=== PATIENT | male | born 1975 | race Caucasian/White ===

== ENCOUNTER → 2017-03-18 | Outpatient (CLI) | payer BC ==
[~2017-03-18] MED LIST: CEPH500C2 PO; ENOX40IN SQ; OXYC-57 PO; PHEN-939 PO; TAMS0.4C38 PO
--- NOTE | 2017-03-18 11:39 | DIAGNOSTIC IMAGING REPORT ---
LEFT ANKLE MIN 3 VIEWS CLINICAL HISTORY: LEFT ANKLE PAIN pain COMPARISON: None DISCUSSION: 2 avulsions from the tip of the distal medial malleolus. This is well-corticated is considered old. A component is aligned anatomically. Very small heel spur. There is no evidence for soft tissue swelling. IMPRESSION: 1. Small heel spur. 2. 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 3. No acute process. Electronically signed by: Boris Awan M.D. 03/18/2017 11:37 AM Dictated Date/Time: 03/18/2017 11:36 AM
== END | disposition home or self-care (01) ==
LOC: C.RDSM 14:55
PROVIDERS: ATTEND Physician Assistant
DX: M25.572 Pain in left ankle and joints of left foot (principal); M77.32 Calcaneal spur, left foot

== ENCOUNTER → 2017-03-26 | Day surgery (SDC) | payer BC ==
[2017-03-22 10:59] VITALS: Ht 188 cm; Wt 118.2 kg
[~2017-03-26] VITALS: Ht 188 cm; Wt 118.2 kg
[~2017-03-26] MED LIST changes: +ATROPINE SULFATE 0.1 MG/ML 5ML SYR IV PRN; +CEFAZOLIN 2000 MG/60 ML D5W IV SCH; +DEXAMETHASONE SOD INJ 4 MG/ML VIAL ONE; +EpHEDrine SULFATE 50MG/5ML SYR ONE; +EpHEDrine SULFATE INJ 50 MG/ML AMP IV PRN; +FENTANYL CITRATE INJ 50 MCG/1 ML 2 ML VIAL IV PRN; +FENTANYL CITRATE INJ 50 MCG/1 ML 2 ML VIAL ONE; +GLYCOPYRROLATE INJ 0.2 MG/ML VIAL ONE; +LACTATED RINGER'S 1000ML 1,000 ML IV SCH; +LIDOCAINE HCL 2% 2 ML VIAL (20MG/ML) ONE; +MIDAZOLAM HCL 1 MG/ML 2ML VIAL ONE; +NEOSTIGMINE METHYLSULFATE 5 MG/5 ML SYR ONE; +ONDANSETRON INJ 2 MG/ML 2 ML VIAL IV PRN; +ONDANSETRON INJ 2 MG/ML 2 ML VIAL ONE; +OXYCODONE/ACETAMINOPHEN 5-325 TAB PO PRN; +PHENYLEPHRINE 100MCG/ML 5ML SYR ONE; +PROPOFOL IV EMULSION 10 MG/ML 20 ML VIAL IV ONE; +ROCURONIUM BROMIDE 10 MG/ML 5 ML VIAL ONE; +ROPIVACAINE 0.5% 5 MG/ML 30 ML VIAL ONE; +SODIUM CHLORIDE 0.9% 1000ML 1,000 ML IV SCH
--- NOTE | 2017-03-26 06:50 | History & Physical Bridge Note ---
H&P Re-Evaluation Bridge Note: I have examined the patient, reviewed the History & Physical and in the interval since the performance of the History & Physical I have noted the following changes of clinical significance: consent verified risks and benefits discussed preop... No changes noted
--- NOTE | 2017-03-26 06:53 | Discharge Instructions ---
Discharge Instructions Date of Service Mar 26, 2017. Visit Reason for Visit: Left Achilles Tendon Rupture Discharge Discharge Diagnosis / Problem: same Discharge Goals Goal(s): Decrease discomfort, Improve function Medications Stopped Medications Name(s): not applicable Restart Stopped Medication(s): use scripts as directed Activity Recommendations Activity Limitations: as noted below Lifting Limitations: until after follow-up appointment Exercise/Sports Limitations: until after follow-up appointment May Resume Sexual Activity: when tolerated Shower/Bathe: keep incision dry Driving or Machine Use: Weightbearing Status: Left non-weightbearing Anesthesia . Post Anesthesia Instructions: If you have had General Anesthesia or IV Sedation: * Do not drive today. * Resume driving when surgeon permits. * Do not make important decisions or sign legal documents today. * Call surgeon for: 1. Temperature elevations greater than 101 degrees F. 2. Uncontrollable pain. 3. Excessive bleeding. 4. Persistent nausea and vomiting. 5. Medication intolerance (nausea, vomiting or rash). * For nausea and vomiting use only clear liquids such as: tea, soda, bouillon until nausea subsides, then gradually increase diet as tolerated. * If you have any concerns or questions, call your surgeon's office. If physician is unavailable and it is an emergency, call 911 or go to the nearest emergency room. . Instructions / Follow-Up Instructions / Follow-Up DIET: * Resume previous diet. MEDICATIONS: * Please take your prescriptions as instructed at your pre-op appointment and/ or see medication discharge instructions listed above. * If concerns develop, call your physician's office at . SPECIAL CARE INSTRUCTIONS: * Ice/Elevate as instructed. * Keep dressing clean, dry, intact. * Your surgical extremity may be discolored due to prepping agents used on the skin. A bluish-green tint is a normal variant and should not cause alarm. Call your doctor at [phone] if: * Temperature above 101 degrees * Pain not relieved by pain medicine ordered * There is increased drainage or redness from any incision * You have any unanswered questions, problems or concerns. FOLLOW UP VISIT: * If not already scheduled, please call the office at to schedule a follow-up appointment. Diet Recommendations Recommended Home Diet: resume previous diet Procedures Procedures Performed: primary repair Pending Studies Studies pending at discharge: no Medical Emergencies . Who to Call and When: Medical Emergencies: If at any time you feel your situation is an emergency, please call 911 immediately. . Non-Emergent Contact Non-Emergency issues call your: Specialist Call Non-Emergent contact if: temperature is above 101.5 . . "Provider Documentation" section prepared by Wai Enriquez. .
--- NOTE | 2017-03-26 08:06 | [facility] Post Operative Brief Note ---
Immediate Operative Summary Operative Date Mar 26, 2017. Pre-Operative Diagnosis Left Achilles Tendon Rupture Post-Operative Diagnosis Same Procedure(s) Performed Left Achilles Tendon Open Primary Repair Surgeon Dr Enriquez Supervisor [employer] Surgeon(s) Shira Brown PA-C Estimated Blood Loss Trace Findings complete tear 3cm proximal to insertion Fluids (cc crystalloids) 700cc Specimens None Drains none Anesthesia block/general Complication(s) None Disposition Recovery Room / PACU
--- NOTE | 2017-03-26 08:08 | [facility] Operative Report ---
Operative Report Operative Date Mar 26, 2017. Pre-Operative Diagnosis Left Achilles Tendon Rupture Post-Operative Diagnosis Same Procedure(s) Performed Left Achilles Tendon Open Primary Repair Surgeon Dr Enriquez Sql Ssrs Ssis Developer Surgeon(s) Shira Brown PA-C Estimated Blood Loss Trace Findings complete tear 3 cm proximal to insertion Fluids (cc crystalloids) 700cc Specimens None Drains none Anesthesia popliteal block/general Complication(s) None Disposition Recovery Room / PACU Implants none Indications athletic with complete tear Description of Procedure primary repair with incision medially based. several baseball 0 vicryl sutures plantaris augmentation. 1 ethibond final cross stitch I attest to the content of the Intraoperative Record and any orders documented therein. Any exceptions are noted below.
--- NOTE | 2017-03-26 08:52 | Anesthesia Progress Nt - [facility] ---
Anesthesia Post Op Note Date & Time Mar 26, 2017 at 08:52 Vital Signs Pain Intensity: 0 Vital Signs Past 12 Hours Date Time Temp Pulse Resp B/P (MAP) Pulse Ox O2 Delivery O2 Flow Rate FiO2 03/26/17 08:41 145/81 03/26/17 08:38 53 12 100 03/26/17 08:38 53 12 03/26/17 08:36 143/80 03/26/17 08:33 54 12 03/26/17 08:33 52 12 100 03/26/17 08:32 53 12 100 03/26/17 08:32 53 12 03/26/17 08:31 142/81 03/26/17 08:27 59 13 99 03/26/17 08:27 59 13 03/26/17 08:26 53 12 03/26/17 08:26 53 12 144/87 100 03/26/17 08:21 61 11 03/26/17 08:21 61 11 151/90 99 03/26/17 08:16 60 16 147/86 100 03/26/17 08:16 59 16 03/26/17 08:13 162/98 03/26/17 08:12 36.2 71 16 162/98 98 Mask 6 03/26/17 07:05 0 03/26/17 07:00 0 03/26/17 06:59 14 03/26/17 06:56 117/88 03/26/17 06:54 70 03/26/17 06:54 70 15 99 03/26/17 06:53 163/97 03/26/17 06:49 71 0 97 03/26/17 06:49 70 03/26/17 06:26 36.5 69 16 153/84 (107) 96 Room Air Notes Mental Status: alert / awake / arousable, participated in evaluation Pt Amnestic to Procedure: Yes Nausea / Vomiting: adequately controlled Pain: adequately controlled Airway Patency, RR, SpO2: stable & adequate BP & HR: stable & adequate Hydration State: stable & adequate Anesthetic Complications: no major complications apparent
[2017-03-26 09:30] VITALS: TEMP 36.3
[2017-03-26 10:18] VITALS: BP 156/90; PULSE 73; O2SAT 96
--- NOTE | 2017-03-26 10:39 | [facility] Operative Report ---
Operative Report Operative Date Mar 26, 2017. Pre-Operative Diagnosis Left Achilles Tendon Rupture Post-Operative Diagnosis Left ankle Same Procedure(s) Performed Left Achilles Tendon Open Primary Repair Surgeon Dr Enriquez Dairy Cattle Farmer Surgeon(s) Shira Brown PA-C Estimated Blood Loss Trace Findings Ruptured achilles tendon Fluids (cc crystalloids) 700cc Specimens None Complication(s) None Disposition Recovery Room / PACU Indications This 41-year-old white male ruptured his Achilles tendon while playing soccer. He was evaluated in the office. Patient elected to proceed with surgical intervention after being educated about potential risks and outcomes. Description of Procedure Patient was taken to the operating room where he was given general anesthetic. He was prepped and draped in usual sterile fashion. Please see Dr. Enriquez's operative report for specifics of the procedure. I was present for the entire case from initial patient positioning through final wound closure. Assistance was provided in tissue traction, hemostasis, and final wound closure. Patient was taken to the recovery room in satisfactory condition. I attest to the content of the Intraoperative Record and any orders documented therein. Any exceptions are noted below.
--- NOTE | 2017-04-06 17:01 | [facility] Operative Report ---
Operative Report Date of Service Apr 06, 2017. Operative Report Preoperative diagnosis: Left Achilles tendon rupture Postoperative diagnosis: Same Surgeon: Zoe Assistants: Tara Beckman Operation: Left Achilles tendon open primary repair Perioperative situation: Medically cleared male ruptured his Achilles tendon playing soccer at this point in time options were discussed with him concerning casting/splinting/primary repair. He wished to proceed with surgical treatment. Consent obtained appropriately and risks discussed with him in detail. Procedure: After the patient appropriate notified site verified consent verified antibiotics confirmed as being given the left lower extremity was prepped and draped in usual routine fashion with the patient prone position. A posterior medial incision was made. Full-thickness flaps raised. The peritenon open. The tendon rupture was identified and debrided. Several 0 Vicryl sutures were then placed in both ends in a baseball stitch fashion and then the tendon repair to itself. His created a good end and repair. The plantaris was then dissected proximally and released and then woven through the area and then repaired on itself ;this augmented the repair with good biological tissue.The wound was irrigated peritenon was enclosed with 2-0 Vicryl. Subcutaneous days later with same and the skin with interrupted mattress 3-0 nylon sutures. The wound was then dressed with Xeroform well- padded and then a anterior dorsal splint placed made out of three-inch fiberglass. This was secured with Braden bandage and Coban. Esmarch loss was trace crystalloid per anesthesia was about 700 cc. Operative findings was a complete Achilles tendon rupture approximately 3 cm proximal to its insertion. Dictated but not read. I attest to the content of the Intraoperative Record and any orders documented therein. Any exceptions are noted below.
== END | disposition home or self-care (01) ==
LOC: X.SURG 06:17
PROVIDERS: ATTEND Physical Medicine & Rehabilitation Sports Medicine
DX: S86.012A Strain of left Achilles tendon, initial encounter (principal); X58.XXXA Exposure to other specified factors, initial encounter; Y93.66 Activity, soccer; Z82.49 Family history of ischemic heart disease and other diseases of the circulatory system; Z83.3 Family history of diabetes mellitus

== ENCOUNTER 2017-03-30 08:43 | Inpatient (IN) | payer BC ==
[~2017-03-30] VITALS: Ht 188 cm; Wt 116.3 kg
[2017-03-30] MEDS ORDERED: SODIUM CHLORIDE 0.9% 1000ML 1,000 ML IV STA (09:09)
[2017-03-30] MEDS ORDERED: ONDANSETRON INJ 2 MG/ML 2 ML VIAL IV STA (09:09)
[2017-03-30] MEDS ORDERED: HYDROmorphone INJ 1 MG/ML SYR IV STA (09:09)
[2017-03-30] MEDS ORDERED: ENOX40IN SQ (09:16)
[2017-03-30] MEDS ORDERED: CEPH500C2 PO (09:16)
[2017-03-30] MEDS ORDERED: OXYC-57 PO (09:16)
--- NOTE | 2017-03-30 09:20 | EMERGENCY ROOM VISIT NOTE ---
History First contact with patient: 09:02 Chief Complaint: ABDOMINAL PAIN Stated Complaint: STRONG PAIN IN THE BELLY Nursing Triage Summary: pt reports pain in RUQ starting at 0630 this morning with nausea , reports surg on ruptured achilles on Fri splint in place on LLE History of Present Illness The patient is a 41 year old male who presents to the Emergency Room with complaints of right flank pain. The patient states that the pain started suddenly at 6:30 this morning. He states the pain is rated 10/10 and is associated with nausea. The patient states that he had Achilles tendon surgery 4 days ago. He denies any pain in his chest or trouble breathing. He denies any vomiting. He denies diarrhea but states he has moved his bowel today. He denies any low back pain, numbness, tingling, weakness in the extremities. Review of Systems A 10 system review of systems was completed with positives and pertinent negatives listed in the HPI. Past Medical/Surgical History Medical Problems: (1) Renal and ureteric calculus (2) Rupture Achilles tendon Social History Smoking Status: Never Smoker Housing Status: lives with family Current/Historical Medications Scheduled Cephalexin Monohydrate (Keflex), 500 MG PO TID Enoxaparin (Lovenox), 40 MG SQ DAILY Scheduled PRN Oxycodone/Acetaminophen 5MG/325MG (Percocet 5MG/325MG), 1-2 TABLETS PO Q4H PRN for Pain Allergies Coded Allergies: No Known Allergies (Unverified , 03/26/17) Physical Exam Vital Signs Date Time Temp Pulse Resp B/P (MAP) Pulse Ox O2 Delivery O2 Flow Rate FiO2 03/30/17 14:24 36.6 72 18 127/88 97 Room Air 03/30/17 14:05 78 15 125/84 95 03/30/17 13:57 78 15 125/84 95 03/30/17 12:37 73 129/70 98 03/30/17 12:03 65 16 135/70 98 Room Air 03/30/17 10:20 69 16 140/88 98 Room Air 03/30/17 08:49 84 24 136/88 97 Room Air Physical Exam VITALS: Vitals are noted on the nurse's note and reviewed by myself. Vital signs stable. The patient is afebrile GENERAL: This is a 41-year-old male, in no acute distress, nondiaphoretic, well- developed well-nourished. SKIN: The skin was without rashes, erythema, edema, or bruising. There is no tenting of the skin. Capillary reflex less than 2 seconds. HEAD: Normocephalic atraumatic. EARS: The external ears are normal in appearance. EYES: Pupils equal round and reactive to light and accommodation. Conjunctivae without injection, sclerae without icterus. Extraocular movements intact. NOSE: Patent, turbinates without inflammation or discharge. MOUTH: Mucous membranes moist. Tonsils are not enlarged. Pharynx without erythema or exudate. Uvula midline. Airway patent. Tongue does not deviate. NECK: Supple without nuchal rigidity. No lymphadenopathy. No thyromegaly. Cervical spine is nontender. No JVD. HEART: Regular rate and rhythm without murmurs gallops or rubs. LUNGS: Clear to auscultation bilaterally without wheezes, rales or rhonchi. No retractions or accessory muscle use. ABDOMEN: Positive bowel sounds x 4. Soft, there is mild upper abdominal tenderness, without masses or organomegaly. MUSCULOSKELETAL: No muscle atrophy, erythema, or edema noted. Full range of motion in all extremities.Strength 5/5 throughout. NEURO: Patient was alert and oriented to person place and time. No focal neurological deficits. Medical Decision & Procedures ER Provider Diagnostic Interpretation: [~ rep ct add3]] ABD/PELVIS WITHOUT FOR STONE HISTORY:41 yearsMaleright flank pain COMPARISON: CT abdomen and pelvis 11/20/2009. TECHNIQUE: Multiple axial CT images of the abdomen and pelvis were obtained without contrast. FINDINGS: There is minimal dependent bibasilar atelectasis. No gross pneumoperitoneum. Imaged inferior cardiac chambers are unremarkable. There is fatty infiltration of the liver. Spleen, pancreas and right adrenal gland are unremarkable. The previously described left adrenal adenoma is not clearly identified. 3 mm nonobstructing calculus is present within the inferior pole of the left kidney. 5 x 3 x 7 mm calculus of the proximal right ureter causes associated mild obstructive uropathy with perinephric edema. No additional obstructing calculi are identified. Urinary bladder is unremarkable. Prostate is upper limits of normal in size. The abdominal aorta is normal in course and caliber without bulky adenopathy. There is no bowel obstruction. The appendix appears normal. Soft tissues are unremarkable. The bones are intact. IMPRESSION: 1. 5 x 3 x 7 mm calculus of the proximal right ureter causes mild obstructive uropathy. Additional nonobstructing 3 mm calculus is present within the inferior pole left kidney. 2. Fatty infiltration of the liver. 3. Normal appendix. Laboratory Results 03/30/17 09:00 Red Blood Count 5.35, Mean Corpuscular Volume 93.3, Mean Corpuscular Hemoglobin 33.3, Mean Corpuscular Hemoglobin Concent 35.7, Mean Platelet Volume 11.0, Neutrophils (%) (Auto) 52.4, Lymphocytes (%) (Auto) 36.3, Monocytes (%) (Auto) 9.1, Eosinophils (%) (Auto) 1.1, Basophils (%) (Auto) 0.5, Neutrophils # (Auto) 5.45, Lymphocytes # (Auto) 3.77, Monocytes # (Auto) 0.94, Eosinophils # (Auto) 0.11, Basophils # (Auto) 0.05 03/30/17 09:00 Test 03/30/17 09:00 03/30/17 11:15 White Blood Count 10.38 K/uL (4.8-10.8) Red Blood Count 5.35 M/uL (4.7-6.1) Hemoglobin 17.8 g/dL (14.0-18.0) Hematocrit 49.9 % (42-52) Mean Corpuscular Volume 93.3 fL (80-100) Mean Corpuscular Hemoglobin 33.3 pg (25-34) Mean Corpuscular Hemoglobin Concent 35.7 g/dl (32-36) Platelet Count 235 K/uL (130-400) Mean Platelet Volume 11.0 fL (7.4-10.4) Neutrophils (%) (Auto) 52.4 % Lymphocytes (%) (Auto) 36.3 % Monocytes (%) (Auto) 9.1 % Eosinophils (%) (Auto) 1.1 % Basophils (%) (Auto) 0.5 % Neutrophils # (Auto) 5.45 K/uL (1.4-6.5) Lymphocytes # (Auto) 3.77 K/uL (1.2-3.4) Monocytes # (Auto) 0.94 K/uL (0.11-0.59) Eosinophils # (Auto) 0.11 K/uL (0-0.5) Basophils # (Auto) 0.05 K/uL (0-0.2) RDW Standard Deviation 41.7 fL (36.4-46.3) RDW Coefficient of Variation 12.4 % (11.5-14.5) Immature Granulocyte % (Auto) 0.6 % Immature Granulocyte # (Auto) 0.06 K/uL (0.00-0.02) Anion Gap 5.0 mmol/L (3-11) Est Creatinine Clear Calc Drug Dose 109.8 ml/min Estimated GFR () 86.5 Estimated GFR (Non- 74.7 BUN/Creatinine Ratio 15.3 (10-20) Calcium Level 9.7 mg/dl (8.5-10.1) Total Bilirubin 0.4 mg/dl (0.2-1) Aspartate Amino Transf (AST/SGOT) 29 U/L (15-37) Alanine Aminotransferase (ALT/SGPT) 63 U/L (12-78) Alkaline Phosphatase 64 U/L (45-117) Total Protein 7.6 gm/dl (6.4-8.2) Albumin 4.1 gm/dl (3.4-5.0) Globulin 3.5 gm/dl (2.5-4.0) Albumin/Globulin Ratio 1.2 (0.9-2) Lipase 158 U/L (73-393) Urine Color YELLOW Urine Appearance CLEAR (CLEAR) Urine pH 6.0 (4.5-7.5) Urine Specific [place] 1.014 (1.000-1.030) Urine Protein NEG (NEG) Urine Glucose (UA) NEG (NEG) Urine Ketones NEG (NEG) Urine Occult Blood 3+ (NEG) Urine Nitrite NEG (NEG) Urine Bilirubin NEG (NEG) Urine Urobilinogen NEG (NEG) Urine Leukocyte Esterase NEG (NEG) Urine WBC (Auto) 1-5 /hpf (0-5) Urine RBC (Auto) >30 /hpf (0-4) Urine Hyaline Casts (Auto) 1-5 /lpf (0-5) Urine Epithelial Cells (Auto) 5-10 /lpf (0-5) Urine Bacteria (Auto) NEG (NEG) Medications Administered Medications (Trade) Dose Ordered Sig/Rafael Route Start Time Stop Time Status Last Admin Dose Admin Sodium Chloride 1,000 ml @ 999 mls/hr Q1H1M STAT IV 03/30/17 09:09 03/30/17 10:10 DC 03/30/17 09:09 999 MLS/HR Hydromorphone HCl (Dilaudid Inj) 1 mg NOW STAT IV 03/30/17 09:09 03/30/17 09:10 DC 03/30/17 09:15 1 MG Ondansetron HCl (Zofran Inj) 4 mg NOW STAT IV 03/30/17 09:09 03/30/17 09:10 DC 03/30/17 09:14 4 MG Hydromorphone HCl (Dilaudid Inj) 0.5 mg NOW STAT IV 03/30/17 12:30 03/30/17 12:31 DC 03/30/17 12:36 0.5 MG ED Course The patient was seen and examined. Previous visits were reviewed. The patient does not have a fever or leukocytosis. He is not anemic. He does not have any significant electrolyte abnormality. Lipase is not elevated. Urinalysis reveals hematuria but no evidence for urinary tract infection. CT scan of the abdomen and pelvis without IV or oral contrast was obtained. This reveals a 5 x 3 x 7 mm proximal right ureteral stone. The patient was hydrated with normal saline. He was given 1 mg IV Dilaudid which initially helped his pain tremendously. The pain started to come back and he was given 0.5 mg IV Dilaudid. The patient has a fairly large stone. It is likely that he will require intervention. I discussed the case with Kelli Oliveira CRP. She recommends follow-up in the office if the patient is able to be discharged and his pain is controlled. They gave an appointment for the patient for April 05 at 9:[address] Gaitan. The patient continued to have pain. I advised him that we could admit him to the hospitalist service for pain management. The patient want it to have the procedure done immediately. I advised him that the admission at least initially would be for pain management and I could not guarantee that there were definitely be a procedure done. The patient then took it upon himself to contact [facility] urology from the room. The patient states that he was told that they could do a procedure today in the office. I then spoke with Dr. Hastings. She states she initially thought that he was an established patient with her but he is not and therefore the patient should go to unassigned urology. Given the patient's intractable pain and fairly large stone, he would benefit from further evaluation and management in the hospital. The case was discussed with The [facility] hospitalist service and they will evaluate the patient. The case was discussed with Dr. Santa who agrees with the assessment and treatment plan. Medical Decision DIFFERENTIAL DIAGNOSIS: Hepatitis, cholecystitis, cholangitis, biliary colic, pancreatitis, pneumonia, subdiaphragmatic abscess, appendicitis, inguinal hernia , nephrolithiasis, inflammatory bowel disease, mesenteric adenitis, peptic ulcer disease, GERD, gastritis, pancreatitis, myocardial infarction, pericarditis, ruptured aortic aneurysm, appendicitis, gastroenteritis, bowel obstruction, splenic infarct, diverticulitis, mesenteric ischemia, metabolic, peritonitis, among others. Impression Primary Impression: Ureteral calculus Additional Impression: Intractable abdominal pain Departure Information Dispostion Admitted as an inpatient Referrals Wai Enriquez M.D. (PCP) Patient Instructions [facility] Problem Qualifiers
[2017-03-30 09:30] LABS: BASO % 0.5 %; BASO ABS # 0.05 K/uL (0-0.2); COMPLETE YES; EOS % 1.1 %; HEMATOCRIT 49.9 % (42-52); IG% 0.6 %; LYMPH % 36.3 %; LYMPH ABS # 3.77 K/uL (1.2-3.4); MEAN CELL VOLUME 93.3 fL (80-100); MEAN CORPUSCULAR HEMOGLOBIN 33.3 pg (25-34); MEAN CORPUSCULAR HGB CONC 35.7 g/dl (32-36); MONO % 9.1 %; NEUT % 52.4 %; PLATELET COUNT 235 K/uL (130-400); RED BLOOD COUNT 5.35 M/uL (4.7-6.1); WHITE BLOOD COUNT 10.38 K/uL (4.8-10.8)
[2017-03-30 10:05] LABS: CREATININE 1.2 mg/dl (0.60-1.40)
[2017-03-30 10:06] LABS: BUN/CREATININE RATIO 15.3 (10-20); CALCIUM 9.7 mg/dl (8.5-10.1); POTASSIUM 4.1 mmol/L (3.5-5.1)
[2017-03-30 10:08] LABS: ALB/GLOB RATIO 1.2 (0.9-2)
--- NOTE | 2017-03-30 10:18 | DIAGNOSTIC IMAGING REPORT ---
ABD/PELVIS WITHOUT FOR STONE HISTORY:41 yearsMaleright flank pain COMPARISON: CT abdomen and pelvis 11/20/2009. TECHNIQUE: Multiple axial CT images of the abdomen and pelvis were obtained without contrast. FINDINGS: There is minimal dependent bibasilar atelectasis. No gross pneumoperitoneum. Imaged inferior cardiac chambers are unremarkable. There is fatty infiltration of the liver. Spleen, pancreas and right adrenal gland are unremarkable. The previously described left adrenal adenoma is not clearly identified. 3 mm nonobstructing calculus is present within the inferior pole of the left kidney. 5 x 3 x 7 mm calculus of the proximal right ureter causes associated mild obstructive uropathy with perinephric edema. No additional obstructing calculi are identified. Urinary bladder is unremarkable. Prostate is upper limits of normal in size. The abdominal aorta is normal in course and caliber without bulky adenopathy. There is no bowel obstruction. The appendix appears normal. Soft tissues are unremarkable. The bones are intact. IMPRESSION: 1. 5 x 3 x 7 mm calculus of the proximal right ureter causes mild obstructive uropathy. Additional nonobstructing 3 mm calculus is present within the inferior pole left kidney. 2. Fatty infiltration of the liver. 3. Normal appendix. The above report was generated using voice recognition software. It may contain grammatical, syntax or spelling errors. Electronically signed by: Tulio Klein 03/30/2017 10:17 AM Dictated Date/Time: 03/30/2017 10:09 AM
[2017-03-30 12:05] LABS: URINE APPEARANCE CLEAR (CLEAR); URINE BILIRUBIN NEG (NEG); URINE COLOR YELLOW; URINE NITRITE NEG (NEG); URINE SPECIFIC GRAVITY 1.014 (1.000-1.030); UROBILINOGEN NEG (NEG); ZZUR CULT IF INDIC CLEAN CATCH NO
[2017-03-30 12:08] LABS: MANUAL MICROSCOPIC REQUIRED? NO; REVIEW REQ? NO
[2017-03-30] MEDS ORDERED: HYDROmorphone INJ 0.5 MG/0.5 ML SYR IV STA (12:30)
[2017-03-30] MEDS ORDERED: ACETAMINOPHEN 325 MG TAB PO PRN (13:15)
[2017-03-30] MEDS ORDERED: POLYETHYLENE (MIRALAX) 17 GM PACK PO PRN ×2 (13:15→14:45)
[2017-03-30] MEDS ORDERED: ZOLPIDEM TARTRATE 5 MG TAB PO PRN (13:15)
[2017-03-30] MEDS ORDERED: MAGNESIUM HYDROXIDE SUSP 30 ML UDC PO PRN (13:15)
[2017-03-30] MEDS ORDERED: ALUMINUM/MAGNESIUM/SIMETH (MAALOX MAX) 30 ML UDC PO PRN (13:15)
[2017-03-30] MEDS ORDERED: ONDANSETRON INJ 2 MG/ML 2 ML VIAL IV PRN (13:15)
--- NOTE | 2017-03-30 14:13 | History and Physical ---
History & Physical Date & Time of Service: Mar 30, 2017 at 13:43 Chief Complaint: Strong Pain In The Belly Primary Care Physician: Wai Enriquez M.D. History of Present Illness Source: patient 41 y/o M recent R achilles surgery, no additional active med issues. The pt developed acute severe R flank pain and presented to the hospital for evaluation. A CT abdomen was obtained which revealed a 7mm stone in the R ureter. It has been difficult to control the pts pain and he is therefore admitted for pain management and a urology consult. 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[employer] Smoking Status: Never Smoker Allergies Coded Allergies: No Known Allergies (Unverified , 03/26/17) Home Medications Scheduled Cephalexin Monohydrate (Keflex), 500 MG PO TID Enoxaparin (Lovenox), 40 MG SQ DAILY Scheduled PRN Oxycodone/Acetaminophen 5MG/325MG (Percocet 5MG/325MG), 1-2 TABLETS PO Q4H PRN for Pain Review of Systems Constitutional: No fever, No chills, No sweats Eyes: No worsening of vision ENT: No hearing loss, No unusual epistaxis, No nasal symptoms Respiratory: No cough Cardiovascular: No chest pain Abdomen: + problem reported (Severe R flank pain) Musculoskeletal: No joint pain Genitourinary - Male: + hematuria, No dysuria, No urinary frequency Neurologic: No memory loss, No paralysis, No weakness Psychiatric: No depression symptoms Endocrine: No fatigue Hematologic / Lymphatic: No abnormal bleeding/bruising Integumentary: No rash Allergic / Immunologic: No environmental allergies Physical Exam Vital Signs Date Time Temp Pulse Resp B/P (MAP) Pulse Ox O2 Delivery O2 Flow Rate FiO2 03/30/17 12:37 73 129/70 98 03/30/17 12:03 65 16 135/70 98 Room Air 03/30/17 10:20 69 16 140/88 98 Room Air 03/30/17 08:49 84 24 136/88 97 Room Air General Appearance: WD/WN, no apparent distress Head: normocephalic Eyes: normal inspection ENT: normal ENT inspection, hearing grossly normal, TMs normal, pharynx normal Neck: supple, no JVD Respiratory/Chest: chest non-tender, lungs clear, normal breath sounds Cardiovascular: regular rate, rhythm, no edema, no gallop Abdomen/GI: normal bowel sounds, non tender, soft Genitourinary - Male: + pertinent finding (R flank tender) Back: normal inspection, no CVA tenderness, no muscle spasm, normal range of motion Extremities/Musculoskelatal: normal inspection, no calf tenderness, normal capillary refill, + pertinent finding (RLE is splinted - good cap return) 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, no motor/sensory deficits, alert, normal mood/affect, normal reflexes, oriented x 3 Skin: normal color, warm/dry, no rash Diagnostics Laboratory Results Results Past 24 Hours Test 03/30/17 09:00 03/30/17 11:15 Range/Units White Blood Count 10.38 4.8-10.8 K/uL Red Blood Count 5.35 4.7-6.1 M/uL Hemoglobin 17.8 14.0-18.0 g/dL Hematocrit 49.9 42-52 % Mean Corpuscular Volume 93.3 80-100 fL Mean Corpuscular Hemoglobin 33.3 25-34 pg Mean Corpuscular Hemoglobin Concent 35.7 32-36 g/dl Platelet Count 235 130-400 K/uL Mean Platelet Volume 11.0 7.4-10.4 fL Neutrophils (%) (Auto) 52.4 % Lymphocytes (%) (Auto) 36.3 % Monocytes (%) (Auto) 9.1 % Eosinophils (%) (Auto) 1.1 % Basophils (%) (Auto) 0.5 % Neutrophils # (Auto) 5.45 1.4-6.5 K/uL Lymphocytes # (Auto) 3.77 1.2-3.4 K/uL Monocytes # (Auto) 0.94 0.11-0.59 K/uL Eosinophils # (Auto) 0.11 0-0.5 K/uL Basophils # (Auto) 0.05 0-0.2 K/uL RDW Standard Deviation 41.7 36.4-46.3 fL RDW Coefficient of Variation 12.4 11.5-14.5 % Immature Granulocyte % (Auto) 0.6 % Immature Granulocyte # (Auto) 0.06 0.00-0.02 K/uL Sodium Level 137 136-145 mmol/L Potassium Level 4.1 3.5-5.1 mmol/L Chloride Level 102 98-107 mmol/L Carbon Dioxide Level 30 21-32 mmol/L Anion Gap 5.0 3-11 mmol/L Blood Urea Nitrogen 18 7-18 mg/dl Creatinine 1.20 0.60-1.40 mg/dl Est Creatinine Clear Calc Drug Dose 109.8 ml/min Estimated GFR () 86.5 Estimated GFR (Non- 74.7 BUN/Creatinine Ratio 15.3 10-20 Random Glucose 150 70-99 mg/dl Calcium Level 9.7 8.5-10.1 mg/dl Total Bilirubin 0.4 0.2-1 mg/dl Aspartate Amino Transf (AST/SGOT) 29 15-37 U/L Alanine Aminotransferase (ALT/SGPT) 63 12-78 U/L Alkaline Phosphatase 64 45-117 U/L Total Protein 7.6 6.4-8.2 gm/dl Albumin 4.1 3.4-5.0 gm/dl Globulin 3.5 2.5-4.0 gm/dl Albumin/Globulin Ratio 1.2 0.9-2 Lipase 158 73-393 U/L Urine Color YELLOW Urine Appearance CLEAR CLEAR Urine pH 6.0 4.5-7.5 Urine Specific [place] 1.014 1.000-1.030 Urine Protein NEG NEG Urine Glucose (UA) NEG NEG Urine Ketones NEG NEG Urine Occult Blood 3+ NEG Urine Nitrite NEG NEG Urine Bilirubin NEG NEG Urine Urobilinogen NEG NEG Urine Leukocyte Esterase NEG NEG Urine WBC (Auto) 1-5 0-5 /hpf Urine RBC (Auto) >30 0-4 /hpf Urine Hyaline Casts (Auto) 1-5 0-5 /lpf Urine Epithelial Cells (Auto) 5-10 0-5 /lpf Urine Bacteria (Auto) NEG NEG Diagnostic Radiology CT abdomen 1. 5 x 3 x 7 mm calculus of the proximal right ureter causes mild obstructive uropathy. Additional nonobstructing 3 mm calculus is present within the inferior pole left kidney. 2. Fatty infiltration of the liver. 3. Normal appendix. Impression Assessment and Plan 41 y/o M recent R achilles surgery, no additional active med issues. The pt developed acute severe R flank pain and presented to the hospital for evaluation. A CT abdomen was obtained which revealed a 7mm stone in the R ureter. It has been difficult to control the pts pain and he is therefore admitted for pain management and a urology consult. IVF, narcotic analgesics, Flomax provided - Urology consulted for AM as stone may be too large to pass. We will keep him NPO after midnight pending urology eval AM. Reg his achilles rupture, he is on a 5 day course of Keflex and can f/u as an outpt. Full code - ASA prophylaxis Total time for this admit including review of labs, meds, records - discussion with pt and ER attending - 35 min Level of Care Med/Surg Resuscitation Status FULL RESUSCITATION VTE Prophylaxis VTE Risk Assessment Done? Y/N: Yes Risk Level: Very Low Given or contraindicated: Other Anticoagulation
[2017-03-30 14:24] VITALS: BP 127/88; PULSE 72; TEMP 36.6; O2SAT 97; Ht 188 cm; Wt 116.3 kg
[2017-03-30 15:04] VITALS: BP 128/80; PULSE 65; TEMP 36.5; O2SAT 95
[2017-03-30 15:25] LABS: PROTHROMBIN TIME (PATIENT) 10.4 SECONDS (9.0-12.0)
[2017-03-30] MEDS: SODIUM CHLORIDE 0.9% 1000ML 1,000 ML IV SCH (15:29)
--- NOTE | 2017-03-30 15:36 | Urology Consultation ---
History General Date of Service: Mar 30, 2017. Chief Complaint: right flank pain Primary Care Physician: Wai Enriquez M.D. Pt seen a urologist before?: No History of Present Illness 41 yo male presents to [facility] with c/o severe right flank pain. He is s/p achilles tendon rupture repair on 03-26-17. CT scan showing a 5 x 7mm proximal right ureteral stone. The pt c/o pain 03/29 this afternoon with some nausea. Denies dysuria, hematuria, or vomiting. He has been afebrile since admission. White count and Cr are normal. The pt does report a hx of stones around [id number]. He passed the stone on his own at that time. Imaging Imaging: CT Laboratory Last 24 Hours Test 03/30/17 09:00 03/30/17 11:15 03/30/17 14:57 White Blood Count 10.38 K/uL Red Blood Count 5.35 M/uL Hemoglobin 17.8 g/dL Hematocrit 49.9 % Mean Corpuscular Volume 93.3 fL Mean Corpuscular Hemoglobin 33.3 pg Mean Corpuscular Hemoglobin Concent 35.7 g/dl Platelet Count 235 K/uL Mean Platelet Volume 11.0 fL Neutrophils (%) (Auto) 52.4 % Lymphocytes (%) (Auto) 36.3 % Monocytes (%) (Auto) 9.1 % Eosinophils (%) (Auto) 1.1 % Basophils (%) (Auto) 0.5 % Neutrophils # (Auto) 5.45 K/uL Lymphocytes # (Auto) 3.77 K/uL Monocytes # (Auto) 0.94 K/uL Eosinophils # (Auto) 0.11 K/uL Basophils # (Auto) 0.05 K/uL RDW Standard Deviation 41.7 fL RDW Coefficient of Variation 12.4 % Immature Granulocyte % (Auto) 0.6 % Immature Granulocyte # (Auto) 0.06 K/uL Sodium Level 137 mmol/L Potassium Level 4.1 mmol/L Chloride Level 102 mmol/L Carbon Dioxide Level 30 mmol/L Anion Gap 5.0 mmol/L Blood Urea Nitrogen 18 mg/dl Creatinine 1.20 mg/dl Est Creatinine Clear Calc Drug Dose 109.8 ml/min Estimated GFR () 86.5 Estimated GFR (Non- 74.7 BUN/Creatinine Ratio 15.3 Random Glucose 150 mg/dl Calcium Level 9.7 mg/dl Total Bilirubin 0.4 mg/dl Aspartate Amino Transf (AST/SGOT) 29 U/L Alanine Aminotransferase (ALT/SGPT) 63 U/L Alkaline Phosphatase 64 U/L Total Protein 7.6 gm/dl Albumin 4.1 gm/dl Globulin 3.5 gm/dl Albumin/Globulin Ratio 1.2 Lipase 158 U/L Urine Color YELLOW Urine Appearance CLEAR Urine pH 6.0 Urine Specific [place] 1.014 Urine Protein NEG Urine Glucose (UA) NEG Urine Ketones NEG Urine Occult Blood 3+ Urine Nitrite NEG Urine Bilirubin NEG Urine Urobilinogen NEG Urine Leukocyte Esterase NEG Urine WBC (Auto) 1-5 /hpf Urine RBC (Auto) >30 /hpf Urine Hyaline Casts (Auto) 1-5 /lpf Urine Epithelial Cells (Auto) 5-10 /lpf Urine Bacteria (Auto) NEG Prothrombin Time 10.4 SECONDS Prothromb Time International Ratio 1.0 Past History kidney stones, other (achilles tendon rupture) Past Surgical History: orthopedic surgery (s/p achilles tendon rupture 03-26-17) Family History Father from [place]. 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[employer] Allergies Coded Allergies: No Known Allergies (Unverified , 03/26/17) Medications Home Medications: Home Meds and Scripts Medications Dose Route/Sig Max Daily Dose Days Date Category Dose Instructions Keflex (Cephalexin Monohydrate) 500 Mg Cap 500 Mg PO TID 03/30/17 Reported FROM SURGERY 03/19 Lovenox (Enoxaparin Sodium) 40 Mg/0.4 Ml Inj 40 Mg SQ DAILY 03/30/17 Reported FROM SURGERY 03/19 Percocet 5MG/325MG (Oxycodone/Acetaminophen) Tab 1-2 Tablets PO Q4H PRN 03/30/17 Reported FROM SURGERY 03/19 Inpatient Medications: Current Inpatient Medications Medications (Trade) Dose Ordered Sig/Rafael Route Start Time Stop Time Status Last Admin Dose Admin Acetaminophen (Tylenol Tab) 650 mg Q4H PRN PO 03/30/17 13:15 04/29/17 13:14 Al Hydrox/Mg Hydrox/Simethicone (Maalox Max Susp) 15 ml Q4H PRN PO 03/30/17 13:15 04/29/17 13:14 Magnesium Hydroxide (Milk Of Magnesia Susp) 30 ml Q6H PRN PO 03/30/17 13:15 04/29/17 13:14 Zolpidem Tartrate (Ambien Tab) 5 mg HSZ PRN PO 03/30/17 13:15 04/29/17 13:14 Ondansetron HCl (Zofran Inj) 4 mg Q6H PRN IV 03/30/17 13:15 04/29/17 13:14 Sodium Chloride 1,000 ml @ 100 mls/hr Q10H IV 03/30/17 15:00 03/31/17 10:59 Tamsulosin HCl (Flomax Cap) 0.4 mg HS PO 03/30/17 21:00 04/29/17 20:59 Hydromorphone HCl (Dilaudid Inj) 1 mg Q3H PRN IV 03/30/17 13:30 04/13/17 13:29 Cephalexin Monohydrate (Keflex Cap) 500 mg TID PO 03/30/17 21:00 03/31/17 20:59 Enoxaparin Sodium (Lovenox Inj) 40 mg DAILY SQ 03/31/17 09:00 04/30/17 08:59 Future Hold Aspirin/Aluminum/ Magnesium/Ca Carb (Ascriptin Tab) 325 mg DAILY PO 03/31/17 09:00 04/30/17 08:59 Polyethylene (Miralax Powder Packet) 17 gm DAILY PRN PO 03/30/17 14:45 04/29/17 14:44 Review of Systems Review of Systems Constitutional: No fever, No chills Eyes: No double vision Neurological: No dizzy Endocrine: No excessive thirst Gastrointestinal: + abdominal pain (RLQ and flank ), + nausea, No vomiting Cardiovascular: No chest pain Respiratory: No shortness of breath Skin: No rash Musculoskeletal: + back pain (right low back ) Male : No painful urination, No blood in urine Physical Exam Vital Signs: Vital Signs Past 12 Hours Date Time Temp Pulse Resp B/P (MAP) Pulse Ox O2 Delivery O2 Flow Rate FiO2 03/30/17 15:04 36.5 65 16 128/80 (96) 95 Room Air 03/30/17 14:24 36.6 72 18 127/88 97 Room Air 03/30/17 14:05 78 15 125/84 95 03/30/17 13:57 78 15 125/84 95 03/30/17 12:37 73 129/70 98 03/30/17 12:03 65 16 135/70 98 Room Air 03/30/17 10:20 69 16 140/88 98 Room Air 03/30/17 08:49 84 24 136/88 97 Room Air Physical Exam: General Appearance: no apparent distress Eyes: bilateral eyes normal inspection ENT: hearing grossly normal Neck: no JVD Respiratory/Chest: no respiratory distress, no accessory muscle use Cardiovascular: no JVD Extremities: normal inspection Neurologic/Psychiatric: alert, normal mood/affect, oriented x 3 Skin: normal color Assessment & Plan Assessment & Plan A/P: 5x7mm proximal right ureteral stone AFVSS. No evidence of sepsis at this time. Will attempt a trial of passage with MET overnight. Recommend supportive management with IVF, pain control, and Flomax. Will provide a diet this evening. Encourage plenty of fluids. NPO after midnight in the event his pain persists and he needs stent placement. Will check and KUB and labs in the AM. Will also send a UC&S. In the event stent placement is needed, will need to take great care to ensure no pressure is placed on his achilles tendon in the lithotomy position. Thanks for the consult. Will continue to follow along with primary service.
[2017-03-30] MEDS: HYDROmorphone INJ 1 MG/ML SYR IV PRN ×2 (17:11→23:38)
--- NOTE | 2017-03-30 19:58 | DIAGNOSTIC IMAGING REPORT ---
KUB CLINICAL HISTORY: Ureteral stone. COMPARISON STUDY: CT of the abdomen and pelvis March 30, 2017 9:57 AM. FINDINGS: The irregular 7 mm x 4 mm proximal right ureteral calculus is unchanged in position since CT from earlier today. A 3 mm calculus within the lower pole of the left kidney is noted. Pelvic calcifications were shown to represent phleboliths on prior CT. Bowel gas pattern is normal. IMPRESSION: 1. No change in position of the 7 mm x 4 mm proximal right ureteral calculus. 2. 3 mm left renal calculus. Electronically signed by: Cristian Le M.D. 03/30/2017 7:56 PM Dictated Date/Time: 03/30/2017 7:52 PM
[2017-03-30] MEDS ORDERED: CEPHALEXIN MONOHYDRATE 500 MG CAP PO SCH (21:00)
[2017-03-30] MEDS: CEPHALEXIN MONOHYDRATE 500 MG PO SCH (21:14)
[2017-03-30] MEDS: TAMSULOSIN HCL 0.4 MG CAP PO SCH (21:15)
[2017-03-30 22:55] VITALS: BP 111/73; PULSE 75; TEMP 36.7; O2SAT 97
[2017-03-31] MEDS: SODIUM CHLORIDE 0.9% 1000ML 1,000 ML IV SCH (00:54)
--- NOTE | 2017-03-31 06:22 | DIAGNOSTIC IMAGING REPORT ---
KUB CLINICAL HISTORY: right ureteral stone nephrocalcinosis COMPARISON STUDY: 03/30/2017. FINDINGS: unchanging proximal right ureteral calculus. Unchanging lower pole renal calcification. Bowel pattern remains nonobstructive. IMPRESSION: Unchanging proximal right ureteral calculus. 3 mm unchanged lower pole left renal calculus Electronically signed by: Boris Awan M.D. 03/31/2017 6:21 AM Dictated Date/Time: 03/31/2017 6:15 AM
[2017-03-31 06:46] LABS: BASO % 0.4 %; BASO ABS # 0.04 K/uL (0-0.2); COMPLETE YES; EOS % 1.1 %; HEMATOCRIT 46.4 % (42-52); IG% 0.4 %; LYMPH ABS # 3.23 K/uL (1.2-3.4); MEAN CELL VOLUME 92.8 fL (80-100); MEAN CORPUSCULAR HGB CONC 34.5 g/dl (32-36); MEAN PLATELET VOLUME 10.9 fL (7.4-10.4); MONO % 9.4 %; NEUT % 53.7 %; PLATELET COUNT 215 K/uL (130-400); WHITE BLOOD COUNT 9.23 K/uL (4.8-10.8)
[2017-03-31 07:23] LABS: BUN/CREATININE RATIO 16.5 (10-20); CALCIUM 8.8 mg/dl (8.5-10.1); CREATININE 1.1 mg/dl (0.60-1.40); POTASSIUM 3.8 mmol/L (3.5-5.1)
[2017-03-31 07:30] VITALS: BP 116/72; PULSE 64; TEMP 36.5; O2SAT 97
[2017-03-31] MEDS: CEPHALEXIN MONOHYDRATE 500 MG PO SCH ×3 (08:54→20:35)
[2017-03-31] MEDS: ENOXAPARIN 40 MG/0.4 ML SYR SQ SCH (08:54)
[2017-03-31] MEDS ORDERED: ASPIRIN/ALUM/MAGNES/CAL CARB 325 MG TAB PO SCH (09:00)
--- NOTE | 2017-03-31 09:06 | Progress Note ---
Subjective Date of Service: Mar 31, 2017. Subjective Pt evaluation today including: conversation w/ patient, chart review, lab review Voiding: no voiding problems 41 yo male with proximal right ureteral stone. Pt states he does not feel very well this morning. C/o a headache, some nausea, and generalized backache. He feels the back pain may be r/t lying in bed. Also states he has some dysuria. Denies vomiting or gross hematuria. He remains afebrile. Problem List Medical Problems: (1) Intractable abdominal pain Status: Acute (2) Ureteral calculus Status: Acute Review of Systems Constitutional: + problem reported (headache), No fever, No chills Respiratory: No shortness of breath Cardiac: No chest pain Abdomen: + see HPI, + nausea, No pain, No vomiting Male : + see HPI, + dysuria, No hematuria Heme: No abnormal bleeding/bruising Objective Vital Signs Date Time Temp Pulse Resp B/P (MAP) Pulse Ox O2 Delivery O2 Flow Rate FiO2 03/31/17 08:00 Room Air 03/31/17 07:30 36.5 64 16 116/72 (87) 97 Room Air 03/30/17 23:35 Room Air 03/30/17 22:55 36.7 75 17 111/73 (86) 97 Room Air 03/30/17 15:30 Room Air 03/30/17 15:04 36.5 65 16 128/80 (96) 95 Room Air 03/30/17 14:24 36.6 72 18 127/88 97 Room Air 03/30/17 14:05 78 15 125/84 95 03/30/17 13:57 78 15 125/84 95 03/30/17 12:37 73 129/70 98 03/30/17 12:03 65 16 135/70 98 Room Air 03/30/17 10:20 69 16 140/88 98 Room Air Physical Exam General Appearance: no apparent distress Eyes: normal inspection ENT: hearing grossly normal Neck: no JVD Respiratory/Chest: no respiratory distress, no accessory muscle use Cardiovascular: no JVD Extremities: normal inspection, + pertinent finding (dressings/marga bandage to LLE and foot) Neurologic/Psychiatric: alert, normal mood/affect, oriented x 3 Skin: normal color Laboratory Results Last 24 Hours Test 03/30/17 09:00 03/30/17 11:15 03/30/17 14:57 03/31/17 06:01 White Blood Count 10.38 K/uL 9.23 K/uL Red Blood Count 5.35 M/uL 5.00 M/uL Hemoglobin 17.8 g/dL 16.0 g/dL Hematocrit 49.9 % 46.4 % Mean Corpuscular Volume 93.3 fL 92.8 fL Mean Corpuscular Hemoglobin 33.3 pg 32.0 pg Mean Corpuscular Hemoglobin Concent 35.7 g/dl 34.5 g/dl Platelet Count 235 K/uL 215 K/uL Mean Platelet Volume 11.0 fL 10.9 fL Neutrophils (%) (Auto) 52.4 % 53.7 % Lymphocytes (%) (Auto) 36.3 % 35.0 % Monocytes (%) (Auto) 9.1 % 9.4 % Eosinophils (%) (Auto) 1.1 % 1.1 % Basophils (%) (Auto) 0.5 % 0.4 % Neutrophils # (Auto) 5.45 K/uL 4.95 K/uL Lymphocytes # (Auto) 3.77 K/uL 3.23 K/uL Monocytes # (Auto) 0.94 K/uL 0.87 K/uL Eosinophils # (Auto) 0.11 K/uL 0.10 K/uL Basophils # (Auto) 0.05 K/uL 0.04 K/uL RDW Standard Deviation 41.7 fL 41.3 fL RDW Coefficient of Variation 12.4 % 12.2 % Immature Granulocyte % (Auto) 0.6 % 0.4 % Immature Granulocyte # (Auto) 0.06 K/uL 0.04 K/uL Sodium Level 137 mmol/L 140 mmol/L Potassium Level 4.1 mmol/L 3.8 mmol/L Chloride Level 102 mmol/L 104 mmol/L Carbon Dioxide Level 30 mmol/L 25 mmol/L Anion Gap 5.0 mmol/L 11.0 mmol/L Blood Urea Nitrogen 18 mg/dl 18 mg/dl Creatinine 1.20 mg/dl 1.10 mg/dl Est Creatinine Clear Calc Drug Dose 109.8 ml/min 119.8 ml/min Estimated GFR () 86.5 96.1 Estimated GFR (Non- 74.7 82.9 BUN/Creatinine Ratio 15.3 16.5 Random Glucose 150 mg/dl 135 mg/dl Calcium Level 9.7 mg/dl 8.8 mg/dl Total Bilirubin 0.4 mg/dl Aspartate Amino Transf (AST/SGOT) 29 U/L Alanine Aminotransferase (ALT/SGPT) 63 U/L Alkaline Phosphatase 64 U/L Total Protein 7.6 gm/dl Albumin 4.1 gm/dl Globulin 3.5 gm/dl Albumin/Globulin Ratio 1.2 Lipase 158 U/L Urine Color YELLOW Urine Appearance CLEAR Urine pH 6.0 Urine Specific [place] 1.014 Urine Protein NEG Urine Glucose (UA) NEG Urine Ketones NEG Urine Occult Blood 3+ Urine Nitrite NEG Urine Bilirubin NEG Urine Urobilinogen NEG Urine Leukocyte Esterase NEG Urine WBC (Auto) 1-5 /hpf Urine RBC (Auto) >30 /hpf Urine Hyaline Casts (Auto) 1-5 /lpf Urine Epithelial Cells (Auto) 5-10 /lpf Urine Bacteria (Auto) NEG Prothrombin Time 10.4 SECONDS Prothromb Time International Ratio 1.0 Assessment and Plan A/P: Proximal right ureteral stone AFVSS. The pt's current situation is somewhat complicated by a pending move to [place] in 2-3 weeks. Currently will plan to avoid stent placement, and tentatively schedule him for ESWL this Wednesday-. The pt should AVOID and NSAIDS, fish oil , or other blood thinners pending procedure. OK for him to remain inpatient overnight for pain control if needed. Will plan to f/u with him in the office tomorrow at [address] [place] [address] at 3: 30pm to complete ESWL paperwork and H&P. If the pt remains overnight tonight, will check and KUB and labs in AM and make him NPO after midnight in the event he develops severe pain and needs stent placement tomorrow. Hopeful for d/c in AM at least. Will continue to follow along with primary service at this time.
[2017-03-31 09:38] VITALS: O2SAT 97
[2017-03-31] MEDS: HYDROmorphone INJ 1 MG/ML SYR IV PRN ×2 (12:06→21:21)
--- NOTE | 2017-03-31 13:07 | Hospitalist Progress Note ---
Hospitalist Progress Note Date of Service Mar 31, 2017. (Brittney Garcia ., RIMAC) Subjective Pt evaluation today including: conversation w/ patient, physical exam, chart review, lab review, review of studies, review of inpatient medication list Pain: None currently, just received 1 mg Dilaudid PO Intake: Tolerating PO diet Voiding: voiding difficulty (dysuria) The patient reports feeling relatively well. He just received 1 mg of Dilaudid IV about 30 minutes prior to my examination and is currently pain free. He states that this morning his right flank pain had been sharp and severe, but it is well controlled with the Dilaudid. He also states that he had a headache and nausea this morning, but those have both since resolved. He does note some dysuria but denies hematuria or passing the stone. He is tolerating a PO diet well. The patient denies fevers, chills, sweats, chest pain, palpitations, claudication, cough, wheezing, shortness of breath, vomiting, hematuria, urinary retention, paralysis, weakness, numbness and tingling. Additional Comments: See HPI for pertinent positives and negatives. All other systems reviewed and negative. (Brittney Garcia ., CONSTANTINO-C) Objective Vital Signs Date Time Temp Pulse Resp B/P (MAP) Pulse Ox O2 Delivery O2 Flow Rate FiO2 03/31/17 09:38 97 Room Air 03/31/17 08:00 Room Air 03/31/17 07:30 36.5 64 16 116/72 (87) 97 Room Air 03/30/17 23:35 Room Air 03/30/17 22:55 36.7 75 17 111/73 (86) 97 Room Air 03/30/17 15:30 Room Air 03/30/17 15:04 36.5 65 16 128/80 (96) 95 Room Air 03/30/17 14:24 36.6 72 18 127/88 97 Room Air 03/30/17 14:05 78 15 125/84 95 03/30/17 13:57 78 15 125/84 95 (Brittney Garcia ., RIMAC) Physical Exam Notes: General appearance: +Obese. Well-developed, well-nourished, no apparent distress Head: Normocephalic, atraumatic Eyes: Normal inspection, PERRL, EOMI ENT: Normal ENT inspection, hearing grossly normal, pharynx normal Neck: Supple, no JVD, trachea midline Respiratory/Chest: Lungs clear to auscultation, normal breath sounds, no respiratory distress Cardiovascular: Regular rate & rhythm, no gallop, no murmur Abdomen/GI: Normal bowel sounds, non-tender, soft, no CVA tenderness Extremities/Musculoskeletal: +LLE splinted and wrapped in marga bandage. Normal inspection, no calf tenderness, no pedal edema Neurological/Psych: Alert, normal mood/affect, oriented x 3 Skin: Normal color, warm/dry, no rash (Brittney Garcia ., PA-C) Laboratory Results Last 24 Hours Test 03/30/17 14:57 03/31/17 06:01 Prothrombin Time 10.4 SECONDS Prothromb Time International Ratio 1.0 White Blood Count 9.23 K/uL Red Blood Count 5.00 M/uL Hemoglobin 16.0 g/dL Hematocrit 46.4 % Mean Corpuscular Volume 92.8 fL Mean Corpuscular Hemoglobin 32.0 pg Mean Corpuscular Hemoglobin Concent 34.5 g/dl Platelet Count 215 K/uL Mean Platelet Volume 10.9 fL Neutrophils (%) (Auto) 53.7 % Lymphocytes (%) (Auto) 35.0 % Monocytes (%) (Auto) 9.4 % Eosinophils (%) (Auto) 1.1 % Basophils (%) (Auto) 0.4 % Neutrophils # (Auto) 4.95 K/uL Lymphocytes # (Auto) 3.23 K/uL Monocytes # (Auto) 0.87 K/uL Eosinophils # (Auto) 0.10 K/uL Basophils # (Auto) 0.04 K/uL RDW Standard Deviation 41.3 fL RDW Coefficient of Variation 12.2 % Immature Granulocyte % (Auto) 0.4 % Immature Granulocyte # (Auto) 0.04 K/uL Sodium Level 140 mmol/L Potassium Level 3.8 mmol/L Chloride Level 104 mmol/L Carbon Dioxide Level 25 mmol/L Anion Gap 11.0 mmol/L Blood Urea Nitrogen 18 mg/dl Creatinine 1.10 mg/dl Est Creatinine Clear Calc Drug Dose 119.8 ml/min Estimated GFR () 96.1 Estimated GFR (Non- 82.9 BUN/Creatinine Ratio 16.5 Random Glucose 135 mg/dl Calcium Level 8.8 mg/dl (Brittney Garcia PA-C) Diagnostic Results Reviewed the following studies and agree with interpretation as follows: Patient Name: JHONNY PINEDA Unit Number: [id number] Dictated: 03/31/17614 Transcribed: 03/31/17614 MS Printed Date/Time: [~ rep prt dt]/[~ rep prt tm] [~ rep ct labl] - [~ rep ct ivnm] [facility] [place] [address] Dictated: 03/31/17614 Transcribed: 03/31/17614 MS Printed Date/Time: [~ rep prt dt]/[~ rep prt tm] [~ rep ct labl] - [~ rep ct ivnm] Patient: JHONNY PINEDA Address1: [address] [place] [address] DR Gambino Rec: [id number] Address2: Acct ID: [id number] [facility] Zip: [place] [address] Date: 1975 Sex: M Room/Bed: [facility] Ref Phy: No Doctor, Assigned SC: SEAN Att Phy: Garth Phipps M.D. Report #: [id number] Kate Phy: Wai Enriquez M.D. Test: KUB Admit Phy: Garth Phipps M.D. Slide Maker: TRUBLY Interpreting Phy: Boris Awan M.D. Diagnosis: RENAL AND URETERIC CALCULUS Ordering Phy: Kelli Oliveira Service Date: 03/31/17 Admit Date: 03/30/1707/11/17 MNE: [id number] CONF: DICTATED BY: Boris Awan M.D.]] CC: Kelli Oliveira CRNP Kedem, Roy ., M.D. No Doctor, Assigned Wai Enriquez M.D. Endcc: [~ rep ct add3]] KUB CLINICAL HISTORY: right ureteral stone nephrocalcinosis COMPARISON STUDY: 03/30/2017. FINDINGS: unchanging proximal right ureteral calculus. Unchanging lower pole renal calcification. Bowel pattern remains nonobstructive. IMPRESSION: Unchanging proximal right ureteral calculus. 3 mm unchanged lower pole left renal calculus Electronically signed by: Boris Awan M.D. 03/31/2017 6:21 AM Dictated Date/Time: 03/31/2017 6:15 AM The status of this report is Signed. Draft = Not yet reviewed or approved by Radiologist. Signed = Reviewed and approved by Radiologist. <AttendingPhy>Garth Phipps M.D.</AttendingPhy> <FamilyPhy>No Doctor, Assigned</ FamilyPhy> <PrimaryPhy>Wai Enriquez M.D.</PrimaryPhy> <UnitNumber> [id number]</UnitNumber> <VisitNumber>[id number]</VisitNumber> <PatientName> JHONNY PINEDA</PatientName> <DateOfBirth>1975</DateOfBirth> <Location >[facility]</Location> <ServiceDate>03/30/17</ServiceDate> <MNE>ESINDI</MNE> < OrderingPhy>Kelli Oliveira</OrderingPhy> <OrderingPhyMNE>f rep ord dr del rio</OrderingPhyMNE> <DictatingPhyMNE>f rep dict dr del rio</DictatingPhyMNE> < CCListMNE>f rep ct eliane</CCListMNE> <AdmittingPhyMNE>f pt admit dr del rio</ AdmittingPhyMNE> <AttendingPhyMNE>f pt attend dr del rio</AttendingPhyMNE> <ConsultingPhyMNE>f pt consult dr del rio</ConsultingPhyMNE> <FamilyPhyMNE>f pt fam dr del rio</FamilyPhyMNE> <OtherPhyMNE>f pt other dr del rio</OtherPhyMNE> < PrimaryPhyMNE>f pt prim care dr del rio</PrimaryPhyMNE> <ReferringPhyMNE>f pt referring dr del rio</ReferringPhyMNE> (Brittney Garcia, MIGUEL ANGEL) Assessment and Plan 41 y/o male with a history of previous renal stone and recent left Achilles surgery who presents with right flank pain. A CT abdomen was obtained which revealed a 7mm stone in the R proximal ureter. Pt admitted for pain control and urology consult. Right ureteral stone--stable -Admitted to med/surg -NSS + 20 mEq KCl at 150 cc/hr -Dilaudid 1 mg IV q3h prn pain -Flomax 0.4 mg PO qhs -KUB 03/31 shows no change in right ureteral stone -Urology consulted, appreciate recs: Pt scheduled for ESWL on 04/02. Avoid NSAIDs, fish oil and other blood thinners. May keep inpatient overnight if needed for pain control. If kept overnight, repeat KUB and labs in the morning. Keep NPO after midnight in case pt develops severe pain and needs stent placement. L achilles rupture, recent surgery -Continue Keflex 500 mg PO TID x 5 days, 3 days completed. DVT prophylaxis -Hold chemical prophylaxis for ESWL -SCDs Code Status -Level I, FULL RESUSCITATION STATUS (Brittney Garcia ., PA-C) I agree with CONSTANTINO assessment and plan and have seen and examined pt myself Pt with right ureteral stone Unlikely to pass on its own Labs and vitals reviewed Pain controlled on dilaudid Urology consulted Scheduled for lithotripsy on monday 04/02 (Germain Dallas D.OTena)
[2017-03-31] MEDS: NSS + 20MEQ KCL 1000ML 1,000 ML IV SCH ×2 (13:44→20:35)
[2017-03-31 15:00] VITALS: BP 121/78; PULSE 80; TEMP 36.5; O2SAT 95
--- NOTE | 2017-03-31 15:34 | Medical Student: [facility] ---
Med Student History & Physical Date & Time of Service: Mar 31, 2017 at 15:11 Chief Complaint: Renal And Ureteric Calculus Primary Care Physician: Wai Enriquez M.D. History of Present Illness Source: patient, hospital records Ra Ho is a 41 yo male, with PMHx of 1 renal calculous that passed spontaneously in 2000 and recent left achilles tendon repair surgery on 03/26/17) , who presented to the ED complaining for acute 03/29 severe right sided abdominal pain that wrapped around to the right side of his back. He described the pain as worsening, exacerbated with movement, and similar to but worse than previous kidney stone symptoms. Secondary to pain, patient was admitted for urology consult and treated with IV fluids, narcotic analgesics (1mg Hydromorphone HCl (Dilaudid Injection)), and 0.4mg Tamsulosin HCl (Flomax Cap). Upon admission, patient complained of additional symptoms of nausea and headache when hydromorphone HCl was wearing off, but resolved with pain management treatment. Currently, patient is apprehensive concerning controlling his pain as he transitions for discharge with follow-up out-patient for ESWL on 04/02. Therefore, patient is agreeable to staying overnight with follow-up KUB in the morning to monitor location of renal calculous, before follow-up with out- patient urology on 04/01 at 3:30pm. He states he is most worried about his symptoms during the time between his out-patient urology appointment and his ESWL. He reports 2/10 "pressure-like" pain currently, since he had his hydromorphone HCl 1 hour ago, which he says keeps his pain down for 2-3 hours. 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[employer]) Allergies Coded Allergies: No Known Allergies (Unverified , 03/26/17) Medications Cephalexin Monohydrate (Keflex), 500 MG PO TID Enoxaparin (Lovenox), 40 MG SQ DAILY Oxycodone/Acetaminophen 5MG/325MG (Percocet 5MG/325MG), 1-2 TABLETS PO Q4H PRN for Pain Review of Systems Constitutional: No fever, No chills, No sweats Eyes: No eye pain, No redness ENT: No nasal symptoms, No sore throat Respiratory: No cough, No shortness of breath, No dyspnea at rest Cardiovascular: No chest pain, No edema Abdomen: + pain (right flank pain that wraps around to back, currently 2/10 becuase had pain meds 1 hour ago.), No nausea (currently resolved), No vomiting , No diarrhea, No constipation Musculoskeletal: + problem reported (left leg in marga bandage/wrap from achilles tendon repair, using crutches and not putting any weight on foot) Genitourinary - Male: + urinary urgency, No hematuria, No dysuria (denies pain , describes more as "itch," and relief with voiding) Neurologic: No memory loss, No weakness Endocrine: No excessive thirst, No excessive urination Integumentary: No rash, No new/changing skin lesions Physical Exam Vital Signs (24 Hours) Date Time Temp Pulse Resp B/P (MAP) Pulse Ox O2 Delivery O2 Flow Rate FiO2 03/31/17 09:38 97 Room Air 03/31/17 08:00 Room Air 03/31/17 07:30 36.5 64 16 116/72 (87) 97 Room Air 03/30/17 23:35 Room Air 03/30/17 22:55 36.7 75 17 111/73 (86) 97 Room Air 03/30/17 15:30 Room Air General Appearance: WD/WN, + mild distress Head: atraumatic Eyes: normal inspection, sclerae normal Respiratory/Chest: chest non-tender, lungs clear, normal breath sounds, no respiratory distress, no accessory muscle use Cardiovascular: regular rate, rhythm, no edema Abdomen/GI: normal bowel sounds, soft, no pulsatile mass, + tenderness (some tenderness right flank, worsens with movement) Back: normal inspection, no CVA tenderness, no muscle spasm Extremities/Musculoskelatal: normal capillary refill, + pertinent finding ( left leg in marga bandage/cast from achilles repair on 03/26) Neurologic/Psych: alert, normal mood/affect, oriented x 3 Skin: normal color, warm/dry, no rash Diagnostics Laboratory Results Results Past 24 Hours Test 03/31/17 06:01 Range/Units White Blood Count 9.23 4.8-10.8 K/uL Red Blood Count 5.00 4.7-6.1 M/uL Hemoglobin 16.0 14.0-18.0 g/dL Hematocrit 46.4 42-52 % Mean Corpuscular Volume 92.8 80-100 fL Mean Corpuscular Hemoglobin 32.0 25-34 pg Mean Corpuscular Hemoglobin Concent 34.5 32-36 g/dl Platelet Count 215 130-400 K/uL Mean Platelet Volume 10.9 7.4-10.4 fL Neutrophils (%) (Auto) 53.7 % Lymphocytes (%) (Auto) 35.0 % Monocytes (%) (Auto) 9.4 % Eosinophils (%) (Auto) 1.1 % Basophils (%) (Auto) 0.4 % Neutrophils # (Auto) 4.95 1.4-6.5 K/uL Lymphocytes # (Auto) 3.23 1.2-3.4 K/uL Monocytes # (Auto) 0.87 0.11-0.59 K/uL Eosinophils # (Auto) 0.10 0-0.5 K/uL Basophils # (Auto) 0.04 0-0.2 K/uL RDW Standard Deviation 41.3 36.4-46.3 fL RDW Coefficient of Variation 12.2 11.5-14.5 % Immature Granulocyte % (Auto) 0.4 % Immature Granulocyte # (Auto) 0.04 0.00-0.02 K/uL Sodium Level 140 136-145 mmol/L Potassium Level 3.8 3.5-5.1 mmol/L Chloride Level 104 98-107 mmol/L Carbon Dioxide Level 25 21-32 mmol/L Anion Gap 11.0 3-11 mmol/L Blood Urea Nitrogen 18 7-18 mg/dl Creatinine 1.10 0.60-1.40 mg/dl Est Creatinine Clear Calc Drug Dose 119.8 ml/min Estimated GFR () 96.1 Estimated GFR (Non- 82.9 BUN/Creatinine Ratio 16.5 10-20 Random Glucose 135 70-99 mg/dl Calcium Level 8.8 8.5-10.1 mg/dl Microbiology Results 03/30/17 Urine Culture - Preliminary, Resulted NO GROWTH - LESS THAN 1,000 COLONIES/... Diagnostic Radiology 2 KUB X-rays showing unchanging proximal right ureteral calculus and 3mm unchanged left lower pole renal calculus. CT showing 5x7mm stone in right ureter. Impression Assessment and Plan Assessment: Luis Ho is a 41 yo male, with PMHx of 1 kidney stone in 2000and left achilles tendon repair on 03/26/2017, complains of acute, severe right flank pain. Abdominal CT showed 5x7mm stone in right ureter, so patient was admitted for urology consult and sufficient pain control. Plan: 1) Nephrolithiasis of proximal right ureter, diagnosed with abdominal CT - IV fluids (NS + 20 mEq KCl at 150 cc/hr) - KUB each morning to monitor stone's location. KUB on 03/31 showed no significant change from previous day. - Pain control: 1mg Hydromorphone HCl (Dilaudid Inj) PRN q3 hours, 0.4mg Tamsulosin HCl (Flomax Cap) qHS - Urology consult: keep patient overnight to monitor pain and repeat KUB/labs in the morning (04/01) to monitor location. Will keep patient NPO after midnight to in case pain worsens and patient requires stent. Patient is to avoid NSAIDs, fish oil, and blood thinners in preparation for ESWL on 04/02/2017 as out-patient. 2) Left achilles rupture/repair on 03/26/2017 - Continue antibiotic treatment: Cephalexin Monohydrate (Keflex Cap) 500mg TID ( originally 5d, started on 03/27/2017). Advanced Directives Existing Living Will: No Existing Power of Barrel Painter: No DVT Prophylaxis SCDs Prophylaxis Contraindication: Surgical contraindication (Hold chemical prophylaxis for ESWL)
[2017-03-31] MEDS: TAMSULOSIN HCL 0.4 MG CAP PO SCH (21:03)
[2017-03-31 23:02] VITALS: BP 132/76; PULSE 72; TEMP 36.7; O2SAT 94
[2017-04-01] MEDS: NSS + 20MEQ KCL 1000ML 1,000 ML IV SCH ×2 (03:09→09:33)
[2017-04-01 06:02] VITALS: BP 119/79; PULSE 68; TEMP 36.5; O2SAT 93
[2017-04-01 06:18] LABS: BASO % 0.6 %; BASO ABS # 0.05 K/uL (0-0.2); COMPLETE YES; EOS % 1.4 %; HEMATOCRIT 46.6 % (42-52); IG% 0.4 %; LYMPH % 44.2 %; LYMPH ABS # 3.59 K/uL (1.2-3.4); MEAN CORPUSCULAR HEMOGLOBIN 33.1 pg (25-34); MEAN CORPUSCULAR HGB CONC 35.2 g/dl (32-36); MONO % 9.2 %; NEUT % 44.2 %; PLATELET COUNT 211 K/uL (130-400); RED BLOOD COUNT 4.96 M/uL (4.7-6.1); WHITE BLOOD COUNT 8.12 K/uL (4.8-10.8)
[2017-04-01 07:02] LABS: BLOOD UREA NITROGEN 14 mg/dl (7-18); BUN/CREATININE RATIO 14.4 (10-20); CARBON DIOXIDE 24 mmol/L (21-32); CHLORIDE 108 mmol/L (98-107); CREATININE 0.94 mg/dl (0.60-1.40); GLUCOSE 106 mg/dl (70-99); SODIUM 139 mmol/L (136-145)
[2017-04-01 07:15] VITALS: O2SAT 96
--- NOTE | 2017-04-01 07:24 | Progress Note ---
Subjective Date of Service: Apr 01, 2017. Subjective Pt evaluation today including: conversation w/ patient, chart review, lab review Voiding: no voiding problems 41 yo male with right ureteral stone. Stone persists on KUB this morning. Pt continues to have some dull pain he reports as tolerable. + dysuria. Denies hematuria. Denies n/v. He does c/o some chest pain earlier this morning that he feels was worse with movement and likely musculoskeletal. EKG yesterday noted to be normal. Chest x- ray pending this AM. UC&S preliminarily negative. Problem List Medical Problems: (1) Intractable abdominal pain Status: Acute (2) Ureteral calculus Status: Acute Review of Systems Constitutional: No fever, No chills Respiratory: No shortness of breath Cardiac: + see HPI, + chest pain Abdomen: No pain, No nausea, No vomiting Male : + dysuria, No hematuria Heme: No abnormal bleeding/bruising Objective Vital Signs Date Time Temp Pulse Resp B/P (MAP) Pulse Ox O2 Delivery O2 Flow Rate FiO2 04/01/17 06:02 36.5 68 16 119/79 (92) 93 Room Air 04/01/17 00:30 Room Air 03/31/17 23:02 36.7 72 16 132/76 (94) 94 Room Air 03/31/17 15:50 Room Air 03/31/17 15:00 36.5 80 18 121/78 (92) 95 Room Air 03/31/17 09:38 97 Room Air 03/31/17 08:00 Room Air 03/31/17 07:30 36.5 64 16 116/72 (87) 97 Room Air Physical Exam General Appearance: no apparent distress Eyes: normal inspection ENT: hearing grossly normal Neck: no JVD Respiratory/Chest: no respiratory distress, no accessory muscle use Cardiovascular: no JVD Extremities: normal inspection Neurologic/Psychiatric: alert, normal mood/affect, oriented x 3 Skin: normal color Laboratory Results Last 24 Hours Test 04/01/17 06:00 04/01/17 07:07 White Blood Count 8.12 K/uL Red Blood Count 4.96 M/uL Hemoglobin 16.4 g/dL Hematocrit 46.6 % Mean Corpuscular Volume 94.0 fL Mean Corpuscular Hemoglobin 33.1 pg Mean Corpuscular Hemoglobin Concent 35.2 g/dl Platelet Count 211 K/uL Mean Platelet Volume 11.0 fL Neutrophils (%) (Auto) 44.2 % Lymphocytes (%) (Auto) 44.2 % Monocytes (%) (Auto) 9.2 % Eosinophils (%) (Auto) 1.4 % Basophils (%) (Auto) 0.6 % Neutrophils # (Auto) 3.59 K/uL Lymphocytes # (Auto) 3.59 K/uL Monocytes # (Auto) 0.75 K/uL Eosinophils # (Auto) 0.11 K/uL Basophils # (Auto) 0.05 K/uL RDW Standard Deviation 42.8 fL RDW Coefficient of Variation 12.4 % Immature Granulocyte % (Auto) 0.4 % Immature Granulocyte # (Auto) 0.03 K/uL Sodium Level 139 mmol/L Potassium Level mmol/L Chloride Level 108 mmol/L Carbon Dioxide Level 24 mmol/L Anion Gap 7.0 mmol/L Blood Urea Nitrogen 14 mg/dl Creatinine 0.94 mg/dl Est Creatinine Clear Calc Drug Dose 140.2 ml/min Estimated GFR () 116.3 Estimated GFR (Non- 100.3 BUN/Creatinine Ratio 14.4 Random Glucose 106 mg/dl Calcium Level 9.0 mg/dl Assessment and Plan A/P: Proximal right ureteral stone AFVSS. Chest pain disscussed with RN this morning. Pt denies SOB. Will consult hospitalist regarding this issue. Chest x-ray report pending. Normal EKG noted yesterday. The pt's current situation is somewhat complicated by a pending move to [place] in 2-3 weeks. Currently will plan to avoid stent placement, and tentatively schedule him for ESWL tomorrow. The pt should AVOID all NSAIDS, fish oil, or other blood thinners pending procedure. Hopeful for d/c home later this morning. Will plan to f/u with him in the office today at [facility] at 3:30pm to complete ESWL paperwork and H& P. Pt OK for d/c home with Percocet, Colace, and Pyridium. Can provide Rx's as an outpatient at his appt later today if needed. Discharge planning: home
[2017-04-01 07:54] VITALS: BP 108/86; PULSE 78; TEMP 36.5; O2SAT 96
[2017-04-01] MEDS: ENOXAPARIN 40 MG/0.4 ML SYR SQ SCH (08:07)
[2017-04-01 08:18] VITALS: O2SAT 96
--- NOTE | 2017-04-01 08:21 | DIAGNOSTIC IMAGING REPORT ---
CHEST 2 VIEWS ROUTINE CLINICAL HISTORY: 41 years-old Male presenting with pre-op. TECHNIQUE: PA and lateral views of the chest were obtained. COMPARISON: None. FINDINGS: Cardiomediastinal silhouette normal. Lungs and pleural spaces clear. Osseous structures and upper abdomen normal. IMPRESSION: 1. No acute cardiopulmonary disease. Electronically signed by: Ken Lemus M.D. 04/01/2017 8:20 AM Dictated Date/Time: 04/01/2017 8:19 AM
--- NOTE | 2017-04-01 08:24 | DIAGNOSTIC IMAGING REPORT ---
KUB CLINICAL HISTORY: 41 years-old Male presenting with right ureteral stone. TECHNIQUE: Single supine view of the abdomen was obtained. COMPARISON: 03/31/[address] from 03/30/2017.. FINDINGS: Unchanged appearance of the 8 mm proximal right ureteral calculus which again projects over the upper right psoas muscle. Previously noted 3 mm calculus at the left lower pole. Nonobstructive bowel gas pattern. No gross pneumoperitoneum. Lung bases clear. Osseous structures normal. IMPRESSION: 1. Unchanged proximal right ureteral calculus and 3 mm left lower pole calculus. Electronically signed by: Ken Lemus M.D. 04/01/2017 8:23 AM Dictated Date/Time: 04/01/2017 8:20 AM
--- NOTE | 2017-04-01 08:39 | Medical Student: [facility] ---
Med Student Progress Note Date of Service Apr 01, 2017. Subjective Pt evaluation today including: conversation w/ patient, chart review, lab review, review of studies, review of inpatient medication list Pain: 2/10 right flank discomfort, 4/10 mid sternum PO Intake: nothing by mouth since midnight Voiding: no voiding problems (increased urgency, see hpi), no incontinence Ra Ho is a 41 yo male, with PMHx of 1 renal calculous that passed spontaneously in 2000 and recent left achilles tendon repair surgery on 03/26/17) , who presented to the ED complaining for acute 7/10 severe right sided abdominal pain that wrapped around to the right side of his back. Patient has been followed by urology, with diagnosis of proximal right ureter kidney stone of 5x7mm, and he has scheduled out-patient urology follow-up today at 3:30 and ESWL tomorrow (04/02). Patient denies using pain medications overnight and currently rates right flank pain as 2/10, noting it is more localized to right lower quadrant now without wrapping as far around to his back. He states agreement with out-patient follow-up plan, since his pain has been better controlled even without medications. He still notes associated symptoms of fatigue, increased urgency (relief when voiding), decreased velocity of urine stream, but denies dysuria (describing an "itchiness" instead). Since waking up this morning patient has described a 4/10 intermittent, non- radiating mid-sternum chest pain that he can point to with one finger. He states he thinks he may have slept on it wrong, as it is worse with certain movements/positions and hurts only when pressed on. Patient denies shortness of breath, palpitations, and any other pain. Review of Systems Constitutional: + fatigue, No fever, No chills, No sweats Eyes: No eye pain, No redness ENT: No nasal symptoms, No sore throat Respiratory: No cough, No shortness of breath Cardiac: + chest pain (see hpi), No edema Abdomen: + pain (right flank, see hpi), + constipation (harder stool than usual ), No nausea, No vomiting, No diarrhea Musculoskeletal: + problem reported (left lower extremity with recent achilles repair not currently bothering patient), No joint pain Male : + slowing stream (with increased urgency), No dysuria Neurologic: No memory loss, No weakness Psychiatric: No depression symptoms, No anxiety Endo: + fatigue Skin: + problem reported (magra bandage cast on left lower extremity) Objective Vital Signs Date Time Temp Pulse Resp B/P (MAP) Pulse Ox O2 Delivery O2 Flow Rate FiO2 04/01/17 08:18 96 Room Air 04/01/17 07:54 36.5 78 16 108/86 (93) 96 Room Air 04/01/17 07:15 96 Room Air 04/01/17 06:02 36.5 68 16 119/79 (92) 93 Room Air 04/01/17 00:30 Room Air 03/31/17 23:02 36.7 72 16 132/76 (94) 94 Room Air 03/31/17 15:50 Room Air 03/31/17 15:00 36.5 80 18 121/78 (92) 95 Room Air 03/31/17 09:38 97 Room Air Physical Exam General Appearance: WD/WN, no apparent distress, + obese Eyes: bilateral eyes normal inspection, bilateral eyes EOMI ENT: normal ENT inspection, hearing grossly normal Neck: supple, no adenopathy Respiratory/Chest: lungs clear, normal breath sounds, no respiratory distress, no accessory muscle use Cardiovascular: regular rate, rhythm, no edema Abdomen: normal bowel sounds, soft, + tenderness (right flank/right lower quadrant, is not wrapping as far around to back (when compared to yesterday)) Extremities: normal range of motion, non-tender, no pedal edema, normal capillary refill, + pertinent finding (left lower extremity marga bandage wrap/ cast) Neurologic/Psychiatric: alert, normal mood/affect, oriented x 3 Skin: normal color, warm/dry Laboratory Results Last 24 Hours Test 04/01/17 06:00 04/01/17 07:07 White Blood Count 8.12 K/uL Red Blood Count 4.96 M/uL Hemoglobin 16.4 g/dL Hematocrit 46.6 % Mean Corpuscular Volume 94.0 fL Mean Corpuscular Hemoglobin 33.1 pg Mean Corpuscular Hemoglobin Concent 35.2 g/dl Platelet Count 211 K/uL Mean Platelet Volume 11.0 fL Neutrophils (%) (Auto) 44.2 % Lymphocytes (%) (Auto) 44.2 % Monocytes (%) (Auto) 9.2 % Eosinophils (%) (Auto) 1.4 % Basophils (%) (Auto) 0.6 % Neutrophils # (Auto) 3.59 K/uL Lymphocytes # (Auto) 3.59 K/uL Monocytes # (Auto) 0.75 K/uL Eosinophils # (Auto) 0.11 K/uL Basophils # (Auto) 0.05 K/uL RDW Standard Deviation 42.8 fL RDW Coefficient of Variation 12.4 % Immature Granulocyte % (Auto) 0.4 % Immature Granulocyte # (Auto) 0.03 K/uL Sodium Level 139 mmol/L Potassium Level mmol/L 4.0 mmol/L Chloride Level 108 mmol/L Carbon Dioxide Level 24 mmol/L Anion Gap 7.0 mmol/L Blood Urea Nitrogen 14 mg/dl Creatinine 0.94 mg/dl Est Creatinine Clear Calc Drug Dose 140.2 ml/min Estimated GFR () 116.3 Estimated GFR (Non- 100.3 BUN/Creatinine Ratio 14.4 Random Glucose 106 mg/dl Calcium Level 9.0 mg/dl Medications Medications Administered Medications (Trade) Dose Ordered Sig/Rafael Route Start Time Stop Time Status Last Admin Dose Admin Sodium Chloride 1,000 ml @ 999 mls/hr Q1H1M STAT IV 03/30/17 09:09 03/30/17 10:10 DC 03/30/17 09:09 999 MLS/HR Hydromorphone HCl (Dilaudid Inj) 1 mg NOW STAT IV 03/30/17 09:09 03/30/17 09:10 DC 03/30/17 09:15 1 MG Ondansetron HCl (Zofran Inj) 4 mg NOW STAT IV 03/30/17 09:09 03/30/17 09:10 DC 03/30/17 09:14 4 MG Hydromorphone HCl (Dilaudid Inj) 0.5 mg NOW STAT IV 03/30/17 12:30 03/30/17 12:31 DC 03/30/17 12:36 0.5 MG Acetaminophen (Tylenol Tab) 650 mg Q4H PRN PO 03/30/17 13:15 04/29/17 13:14 03/31/17 07:32 650 MG Sodium Chloride 1,000 ml @ 100 mls/hr Q10H IV 03/30/17 15:00 03/31/17 10:59 DC 03/31/17 00:54 100 MLS/HR Tamsulosin HCl (Flomax Cap) 0.4 mg HS PO 03/30/17 21:00 04/29/17 20:59 03/31/17 21:03 0.4 MG Hydromorphone HCl (Dilaudid Inj) 1 mg Q3H PRN IV 03/30/17 13:30 04/13/17 13:29 03/31/17 21:21 1 MG Enoxaparin Sodium (Lovenox Inj) 40 mg DAILY SQ 03/31/17 09:00 04/30/17 08:59 Future hold 03/31/17 08:54 40 MG Aspirin/Aluminum/ Magnesium/Ca Carb (Ascriptin Tab) 325 mg DAILY PO 03/31/17 09:00 03/31/17 13:06 DC 03/31/17 08:54 325 MG Cephalexin Monohydrate (Keflex Cap) 500 mg TID PO 03/30/17 21:00 03/31/17 21:01 DC 03/31/17 20:35 500 MG Potassium Chloride/Sodium Chloride 1,000 ml @ 150 mls/hr Q6H40M IV 03/31/17 13:30 04/30/17 13:29 04/01/17 03:09 150 MLS/HR Assessment and Plan Assessment and Plan: Luis Ho is a 41 yo male, with PMHx of 1 kidney stone in 2000 and left achilles tendon repair on 03/26/2017, complains of acute, severe right flank pain. Diagnosis of 5x7mm stone in proximal right ureter via abdominal CT, daily KUB to monitor location, and follow-up out-patient ESWL on 04/02. Patient has experienced localized mid-sternal chest pain since waking up this morning, only upon palpation, which he attributes to musculoskeletal pain. Plan: 1) Nephrolithiasis of proximal right ureter, diagnosed with abdominal CT - IV fluids (NS + 20 mEq KCl at 150 cc/hr) - KUB each morning to monitor stone's location. KUB on 03/31 showed no significant change from previous day. KUB from 04/01 still pending official impression, urology consult note states "stone persists on KUB this morning." - Pain control: 1mg Hydromorphone HCl (Dilaudid Inj) PRN q3 hours, 0.4mg Tamsulosin HCl (Flomax Cap) qHS. Pain controlled over night without medications. - Urology consult: Kept patient overnight to monitor pain and repeat KUB/labs in the morning (04/01) to monitor location. NPO since midnight to in case pain worsens and patient requires stent. Patient is to avoid NSAIDs, fish oil, and blood thinners in preparation for ESWL on 04/02/2017 as out-patient. Out- patient urology appointment scheduled for 3:30 today. 2) Chest pain - CXR (no acute cardiopulmonary disease) and EKG (normal yesterday, pending official read this morning) to rule out any acute heart problems - Monitor pain during stay, as patient thinks pain is musculoskeletal from sleeping position last night. 3) Left achilles rupture/repair on 03/26/2017 - Continue antibiotic treatment: Cephalexin Monohydrate (Keflex Cap) 500mg TID ( originally 5d, started on 03/27/2017). Discharge planning: home
[2017-04-01] MEDS: OXYCODONE/ACETAMINOPHEN 5-325 TAB PO PRN ×2 (09:34→14:20)
[2017-04-01 10:42] VITALS: BP 108/86; PULSE 78; TEMP 36.5; O2SAT 96
[2017-04-01] MEDS ORDERED: OXYC-57 PO (10:55)
[2017-04-01] MEDS ORDERED: PHEN-939 PO (11:05)
--- NOTE | 2017-04-01 11:15 | Discharge Instructions ---
Discharge Instructions Date of Service Apr 01, 2017. Admission Reason for Admission: Renal And Ureteric Calculus Discharge Discharge Diagnosis / Problem: Right ureteral stone Discharge Goals Goal(s): Decrease discomfort, Diagnostic testing, Therapeutic intervention Activity Recommendations Activity Limitations: resume your previous activity (as tolerated) . Instructions / Follow-Up Instructions / Follow-Up You were admitted to the hospital with right flank pain. You were found to have a 7 mm stone in the right ureter (tube connecting the kidney to the bladder ) with some mild obstructive changes in the right kidney. A trial of medical management was attempted with IV fluids, Flomax and pain control, but you were unable to pass the stone on your own. You have been scheduled for a lithotripsy on April 02. Medications: *You may take oxycodone/acetaminophen 5/325 mg 1 tablet by mouth up to every 6 hours as needed for pain. *You have been given a prescription for Pyridium 100 mg by mouth three times a day to relieve your discomfort with urination. This medication will turn your urine orange and that is normal. *STOP your Lovenox injections until after your procedure. You may resume them when okay with urology. *You may continue your antibiotic (Keflex) until it is completed. Follow up: *You have been scheduled to follow up with urology at [address] at 3: 30pm to complete ESWL paperwork and to perform a history & physical. *Your lithotripsy is scheduled for April 02. *Please follow up with a primary care provider in the next week regarding your hospitalization. Please seek medical attention if you experience fevers, chills, sweats, lightheadedness/dizziness, loss of consciousness, chest pain, shortness of breath, nausea, vomiting, worsening abdominal hagan, numbness or tingling. Current Hospital Diet Patient's current hospital diet: Regular Diet Discharge Diet Recommended Diet: Regular Diet Pending Studies Studies pending at discharge: no Medical Emergencies . Who to Call and When: Medical Emergencies: If at any time you feel your situation is an emergency, please call 911 immediately. . Non-Emergent Contact Non-Emergency issues call your: Primary Care Provider, Urologist Call Non-Emergent contact if: you have a fever, your pain is not controlled, your pain is worsening, your pain is unusual for you, your pain is concerning you, you have any medication questions . Past History Medical & Surgical History: (1) Ureteral calculus . "Provider Documentation" section prepared by Brittney Garcia. . VTE Core Measure Inpt VTE Proph given/why not?: Enoxaparin (Lovenox)SQ, SCD's [place] Drug Monitoring Program Search Results: patient reviewed within database, no issues identified
--- NOTE | 2017-04-01 13:10 | Discharge Summary ---
Discharge Summary Date of Service Apr 01, 2017. (Brittney Garcia .MIGUEL ANGEL) Discharge Summary Admission Date: Mar 30, 2017 at 14:32 Discharge Date: Apr 01, 2017 Discharge Disposition: Home Principal Diagnosis: Right ureteral stone Procedures: ABD/PELVIS WITHOUT FOR STONE HISTORY:41 yearsMaleright flank pain COMPARISON: CT abdomen and pelvis 11/20/2009. TECHNIQUE: Multiple axial CT images of the abdomen and pelvis were obtained without contrast. FINDINGS: There is minimal dependent bibasilar atelectasis. No gross pneumoperitoneum. Imaged inferior cardiac chambers are unremarkable. There is fatty infiltration of the liver. Spleen, pancreas and right adrenal gland are unremarkable. The previously described left adrenal adenoma is not clearly identified. 3 mm nonobstructing calculus is present within the inferior pole of the left kidney. 5 x 3 x 7 mm calculus of the proximal right ureter causes associated mild obstructive uropathy with perinephric edema. No additional obstructing calculi are identified. Urinary bladder is unremarkable. Prostate is upper limits of normal in size. The abdominal aorta is normal in course and caliber without bulky adenopathy. There is no bowel obstruction. The appendix appears normal. Soft tissues are unremarkable. The bones are intact. IMPRESSION: 1. 5 x 3 x 7 mm calculus of the proximal right ureter causes mild obstructive uropathy. Additional nonobstructing 3 mm calculus is present within the inferior pole left kidney. 2. Fatty infiltration of the liver. 3. Normal appendix. KUB 04/01 CLINICAL HISTORY: 41 years-old Male presenting with right ureteral stone. TECHNIQUE: Single supine view of the abdomen was obtained. COMPARISON: 03/31/[address] from 03/30/2017.. FINDINGS: Unchanged appearance of the 8 mm proximal right ureteral calculus which again projects over the upper right psoas muscle. Previously noted 3 mm calculus at the left lower pole. Nonobstructive bowel gas pattern. No gross pneumoperitoneum. Lung bases clear. Osseous structures normal. IMPRESSION: 1. Unchanged proximal right ureteral calculus and 3 mm left lower pole calculus. Consultations: Urology--ROWENA Edwards (Brittney Garcia .MIGUEL ANGEL) Medication Reconciliation New Medications: Phenazopyridine Hcl (Pyridium) 100 Mg Tab 1 TAB PO TID for 3 Days, #9 TAB Changed Medications: Oxycodone/Acetaminophen 5MG/325MG (Percocet 5MG/325MG) Tab 1 TAB PO Q6H PRN for Pain for 3 Days, #9 TABS (Changed from: 1-2 TABLETS; Q4H; FROM SURGERY 03/19) Take 1 tablet by mouth up to every 6 hours as needed for pain. Continued Medications: Cephalexin Monohydrate (Keflex) 500 Mg Cap 500 MG PO TID FROM SURGERY 03/19 Enoxaparin (Lovenox) 40 Mg/0.4 Ml Inj 40 MG SQ DAILY FROM SURGERY 03/19 Discharge Exam The patient reports feeling better. He does complain of a 2/10 dull pain in his RLQ and dysuria. He has not required any IV pain control since last night. He is tolerating a PO diet well. The patient denies fevers, chills, sweats, chest pain, palpitations, claudication, cough, wheezing, shortness of breath, nausea, vomiting, hematuria, urinary retention, paralysis, weakness, numbness and tingling. Review of Systems: Constitutional: No fever, No chills, No sweats Eyes: No worsening of vision, No redness, No diplopia ENT: No hearing loss, No sore throat, No trouble swallowing Respiratory: No cough, No wheezing, No shortness of breath Cardiovascular: No chest pain, No claudication, No palpitations Abdomen: + pain, No nausea, No vomiting Musculoskeletal: No joint pain, No muscle pain, No calf pain Genitourinary - Male: + dysuria, No hematuria, No urinary retention Neurologic: No paralysis, No weakness, No numbness/tingling Integumentary: No rash, No itch, No color change Physical Exam: General Appearance: WD/WN, no apparent distress, + obese Eyes: normal inspection, PERRL, EOMI ENT: normal ENT inspection, hearing grossly normal, pharynx normal Neck: supple, no JVD, trachea midline Respiratory/Chest: lungs clear, normal breath sounds, no respiratory distress Cardiovascular: regular rate, rhythm, no gallop, no murmur Abdomen / GI: normal bowel sounds, soft, + tenderness (RLQ TTP. No CVA tenderness) Extremities: no calf tenderness, normal capillary refill, no pedal edema, + pertinent finding (LLE splinted, wrapped in marga bandage) Neurologic/Psychiatric: alert, normal mood/affect, oriented x 3 Skin: normal color, warm/dry, no rash (Brittney Garcia ., MIGUEL ANGEL) Hospital Course 41 y/o male with a history of previous renal stone and recent left Achilles surgery who presents with right flank pain. A CT abdomen was obtained which revealed a 7mm stone in the R proximal ureter. Pt admitted for pain control and urology consult. Right ureteral stone--stable -Admitted to med/surg -NSS + 20 mEq KCl at 150 cc/hr -Dilaudid 1 mg IV q3h prn pain -Flomax 0.4 mg PO qhs -KUB 03/31 shows no change in right ureteral stone. KUB 04/01 also shows no change. -Urology consulted, appreciate recs: Pt scheduled for ESWL on 04/02. Avoid NSAIDs, fish oil and other blood thinners. Appt at 3:30 for ESWL paperwork and H&P. ESWL scheduled 04/02. Can give Colace, Pyridium and Percocet for pain control. -Percocet 5/325 1 tab q6h prn pain for discharge -Pyridium 100 mg PO TID for discharge -Hold pt's Lovenox injections for procedure, may resume when okay with urology L achilles rupture, recent surgery -Continue Keflex 500 mg PO TID x 5 days, 3.5 days completed. DVT prophylaxis -Hold chemical prophylaxis for ESWL -SCDs Code Status -Level I, FULL RESUSCITATION STATUS Total Time Spent: Greater than 30 minutes This includes examination of the patient, discharge planning, medication reconciliation, and communication with other providers. (Brittney Garcia ., CONSTANTINO-C) I agree with CONSTANTINO assessment and plan and have personally seen and examined pt myself No worsening pain Labs and vitals reviewed Right ureteral stone still has not passed Hemodynamically stable Will follow up with urology for ESWL (Germain Dallas D.OTena) Discharge Instructions Please refer to the electronic Patient Visit Report (Discharge Instructions) for additional information. (Brittney Garcia ., RIMAC)
[2017-04-02] MEDS ORDERED: TAMS0.4C38 PO (11:15)
== END 2017-04-01 15:00 | disposition home or self-care (01) | DRG 694 ==
LOC: C.EDB 08:44 → ENRESERV 13:41 → C.MSW 14:32
PROVIDERS: ADMIT Internal Medicine; ATTEND Hospitalist
DX: N20.1 Calculus of ureter (principal); R07.89 Other chest pain; E66.9 Obesity, unspecified; Z68.32 Body mass index [BMI] 32.0-32.9, adult; Z87.442 Personal history of urinary calculi; Z98.890 Other specified postprocedural states; Z47.89 Encounter for other orthopedic aftercare; Z79.01 Long term (current) use of anticoagulants; Z79.891 Long term (current) use of opiate analgesic

== ENCOUNTER → 2017-04-02 | Day surgery (SDC) | payer BC ==
[2017-04-01 15:49] VITALS: Ht 188 cm; Wt 118.2 kg
[~2017-04-02] VITALS: Ht 188 cm; Wt 118.2 kg
[~2017-04-02] MED LIST changes: -CEFAZOLIN 2000 MG/60 ML D5W IV SCH; -CEPH500C2 PO; +CIPROFLOXACIN 400MG / D5W IV SCH; -DEXAMETHASONE SOD INJ 4 MG/ML VIAL ONE; -EpHEDrine SULFATE 50MG/5ML SYR ONE; -GLYCOPYRROLATE INJ 0.2 MG/ML VIAL ONE; -NEOSTIGMINE METHYLSULFATE 5 MG/5 ML SYR ONE; -PHENYLEPHRINE 100MCG/ML 5ML SYR ONE; +PROMETHAZINE HCL INJ 6.25 MG in SODIUM CHLORIDE 0.9% 50ML 50 ML IV PRN; -ROCURONIUM BROMIDE 10 MG/ML 5 ML VIAL ONE; -ROPIVACAINE 0.5% 5 MG/ML 30 ML VIAL ONE; -SODIUM CHLORIDE 0.9% 1000ML 1,000 ML IV SCH
--- NOTE | 2017-04-02 10:03 | History & Physical Bridge Note ---
H&P Re-Evaluation Bridge Note: I have examined the patient, reviewed the History & Physical and in the interval since the performance of the History & Physical I have noted the following changes of clinical significance: No changes noted
--- NOTE | 2017-04-02 10:38 | [facility] Operative Report ---
Operative Report Operative Date Apr 02, 2017. Pre-Operative Diagnosis R upper ureteral stone Post-Operative Diagnosis Same Procedure(s) Performed Right ureteral ESWL Surgeon Arnie Bone Do All Operator Surgeon(s) NA Estimated Blood Loss NA Findings Good fragmentation of stone on fluoro Specimens NA Drains NA Anesthesia GALMA Complication(s) None Disposition Recovery Room / PACU Indications R upper ureteral stone Description of Procedure The patient was brought to the litho suite. He was correctly identified and the stone was visualized on his most recent x-rays. After the correct time out was performed the patient was positioned over the therapy head. An adequate level of anesthesia was administered. The extracorporeal shockwave lithotripsy treatment was then commenced. Please see the [facility] Management sheet for complete treatment summary. After completion of the procedure the patient was taken to the recovery room in stable condition. I attest to the content of the Intraoperative Record and any orders documented therein. Any exceptions are noted below. I attest to the content of the Intraoperative Record and any orders documented therein. Any exceptions are noted below.
--- NOTE | 2017-04-02 11:16 | Discharge Instructions ---
Discharge Instructions Date of Service Apr 02, 2017. Admission Reason for Admission: Stones Discharge Discharge Diagnosis / Problem: R upper ureteral stone s/p ESWL Discharge Goals Goal(s): Decrease discomfort, Improve function, Improve disease control, Therapeutic intervention Activity Recommendations Activity Limitations: as noted below Lifting Limitations: no more than 25 pounds, gradually increase as tolerated ( light activity x 3 days) Exercise/Sports Limitations: rest today, gradually increase as tolerated (x 3 days) May Resume Sexual Activity: when tolerated Shower/Bathe: no limitations Driving or Machine Use: resume 1 day after discharge . Instructions / Follow-Up Instructions / Follow-Up Strain urine, bring fragments to follow-up appointment Follow-up office visit as scheduled with KUB Xray beforehand - call office to confirm or change Discharge Diet Recommended Diet: Regular Diet (good fluid intake) Procedures Procedures Performed: R upper ureteral ESWL Pending Studies Studies pending at discharge: no Medical Emergencies . Who to Call and When: Medical Emergencies: If at any time you feel your situation is an emergency, please call 911 immediately. . Non-Emergent Contact Non-Emergency issues call your: Urologist Call Non-Emergent contact if: you have a fever, temperature is above 101, your pain is not controlled, your pain is worsening, your pain is unusual for you, your pain is concerning you, you have any medication questions . . "Provider Documentation" section prepared by Emmett Gaitan. . VTE Core Measure Inpt VTE Proph given/why not?: SCD's
--- NOTE | 2017-04-02 12:13 | [facility] Post Operative Brief Note ---
Immediate Operative Summary Operative Date Apr 02, 2017. Pre-Operative Diagnosis R upper ureteral stone Post-Operative Diagnosis Same Procedure(s) Performed Right ureteral ESWL Surgeon Arnie Bone Eligibility Services Representative Surgeon(s) NA Estimated Blood Loss NA Findings Good stone fragmentation on fluoroscopy Specimens NA Drains NA Anesthesia GALMA Complication(s) None Disposition Recovery Room / PACU
[2017-04-02 13:18] VITALS: TEMP 37
--- NOTE | 2017-04-02 13:30 | Anesthesia Progress Nt - [facility] ---
Anesthesia Post Op Note Date & Time Apr 02, 2017 at 13:30 Vital Signs Pain Intensity: 0 Vital Signs Past 12 Hours Date Time Temp Pulse Resp B/P (MAP) Pulse Ox O2 Delivery O2 Flow Rate FiO2 04/02/17 13:11 119/90 04/02/17 13:07 59 17 98 04/02/17 13:07 58 17 04/02/17 13:06 126/88 04/02/17 13:06 36.1 57 16 126/88 97 Room Air 04/02/17 13:05 63 13 98 04/02/17 13:05 63 13 04/02/17 13:01 123/86 04/02/17 13:00 60 14 97 04/02/17 13:00 61 14 04/02/17 12:56 129/91 04/02/17 12:55 62 13 04/02/17 12:55 62 13 97 04/02/17 12:51 127/85 04/02/17 12:50 68 17 04/02/17 12:50 69 17 99 04/02/17 12:46 121/82 04/02/17 12:45 61 13 04/02/17 12:45 61 13 100 04/02/17 12:41 124/82 04/02/17 12:40 62 12 100 04/02/17 12:40 62 12 04/02/17 12:36 122/78 04/02/17 12:35 61 13 04/02/17 12:35 61 13 100 04/02/17 12:31 115/76 04/02/17 12:30 64 12 04/02/17 12:30 64 12 99 04/02/17 12:26 119/81 04/02/17 12:25 36.3 66 16 119/81 98 Diffusion Mask 6 04/02/17 10:08 36.6 75 16 128/82 (97) 94 Room Air Notes Mental Status: alert / awake / arousable, participated in evaluation Pt Amnestic to Procedure: Yes Nausea / Vomiting: adequately controlled Pain: adequately controlled Airway Patency, RR, SpO2: stable & adequate BP & HR: stable & adequate Hydration State: stable & adequate Anesthetic Complications: no major complications apparent
[2017-04-02 13:54] VITALS: BP 132/84; PULSE 54; O2SAT 98
== END | disposition home or self-care (01) ==
LOC: X.SURG 09:46
PROVIDERS: ATTEND Urology
DX: N20.1 Calculus of ureter (principal); Z87.891 Personal history of nicotine dependence

== ENCOUNTER → 2017-04-08 | Outpatient (CLI) | payer BC ==
[~2017-04-08] MED LIST changes: -ATROPINE SULFATE 0.1 MG/ML 5ML SYR IV PRN; -CIPROFLOXACIN 400MG / D5W IV SCH; -ENOX40IN SQ; -EpHEDrine SULFATE INJ 50 MG/ML AMP IV PRN; -FENTANYL CITRATE INJ 50 MCG/1 ML 2 ML VIAL IV PRN; -FENTANYL CITRATE INJ 50 MCG/1 ML 2 ML VIAL ONE; -LACTATED RINGER'S 1000ML 1,000 ML IV SCH; -LIDOCAINE HCL 2% 2 ML VIAL (20MG/ML) ONE; -MIDAZOLAM HCL 1 MG/ML 2ML VIAL ONE; -ONDANSETRON INJ 2 MG/ML 2 ML VIAL IV PRN; -ONDANSETRON INJ 2 MG/ML 2 ML VIAL ONE; -OXYCODONE/ACETAMINOPHEN 5-325 TAB PO PRN; -PHEN-939 PO; -PROMETHAZINE HCL INJ 6.25 MG in SODIUM CHLORIDE 0.9% 50ML 50 ML IV PRN; -PROPOFOL IV EMULSION 10 MG/ML 20 ML VIAL IV ONE
--- NOTE | 2017-04-08 13:14 | DIAGNOSTIC IMAGING REPORT ---
KUB CLINICAL HISTORY: 41 years-old Male presenting with nephrolithiasis. TECHNIQUE: Single supine view of the abdomen was obtained. COMPARISON: 04/01/2017. FINDINGS: Previously noted 3 mm calculus projects over the lower pole of the left kidney, unchanged. Previously noted 8 mm calculus in the proximal right ureter has progressed slightly now at the level of L4-5, previously at L2. Phleboliths noted in the pelvis. Stool degrades evaluation of the bladder. Nonobstructive bowel gas pattern. Osseous structures normal. IMPRESSION: 1. Interval progression of the right ureteral calculus into the more distal right ureter at the level of L4-5. 2. Unchanged 3 mm left lower pole calculus. Electronically signed by: Ken Lemus M.D. 04/08/2017 1:12 PM Dictated Date/Time: 04/08/2017 1:09 PM
== END | disposition home or self-care (01) ==
LOC: C.RAD 12:37
PROVIDERS: ATTEND Nurse Practitioner Adult Health
DX: N20.0 Calculus of kidney (principal)